=== PATIENT | female | born 1965 | race Caucasian/White ===

== ENCOUNTER 2020-02-25 12:38 | Outpatient (REF) | payer MEDICARE, MEDICAID, SELFPAY ==
--- NOTE | 2020-02-25 13:15 | XR_ITS ---
EXAMINATION: XR SHOULDER, RIGHT CLINICAL INFORMATION: Shoulder pain COMPARISON: None TECHNIQUE: 5 views of the right shoulder. FINDINGS: No fracture. Glenohumeral and acromioclavicular alignment is anatomic with normal joint space. No abnormal soft tissue calcifications. Visualized lungs are clear. XR/XR shoulder RT min 2V IMPRESSION: No evidence of significant osseous abnormality.
[2020-02-25 14:26] LABS: MANUAL DIFF FLAG NO
[2020-02-25 14:33] LABS: Basophils Absolute Auto 0.1 X10*3/uL (0.0-0.2); Eosinophils Absolute Auto 0.4 X10*3/uL (0.0-0.4); Eosinophils Percent Auto 5.1 % (0-4); Hemoglobin 13.1 g/dl (12.0-16.0); Imm Gran Abs Auto 0.02 X10*3/uL (0.00-0.03); Imm Gran Pct Auto 0.3 % (0.0-0.4); Lymphocytes Absolute Auto 1.4 X10*3/uL (1.2-4.9); Lymphocytes Percent Auto 19.4 % (20-40); Mean Corpuscular Hemoglobin 29.8 pg (27.0-33.0); Mean Corpuscular Volume 93.4 fL (80-98); Mean Platelet Volume 11.3 fL (9.4-12.3); Monocytes Absolute Auto 0.5 X10*3/uL (0.1-1.2); Monocytes Percent Auto 7.1 % (2-11); Neutrophils Absolute Auto 4.9 X10*3/uL (2.0-8.3); Neutrophils Percent Auto 67.1 % (45-73); Platelet Count 217 X10*3/uL (160-400); Red Blood Count 4.39 X10*6/uL (4.20-5.50); Red Cell Distribution Width 13.7 % (11.0-16.0); White Blood Count 7.3 X10*3/uL (4.8-10.8)
[2020-02-25 15:16] LABS: Alanine Aminotransferase 11 U/L (0-31); Albumin Level 4.1 g/dL (3.5-5.0); Alkaline Phosphatase 60 U/L (39-117); Anion Gap 16 (12-20); Aspartate Amino Transferase 15 U/L (5-31); Bilirubin Total 0.4 mg/dL (0.0-1.0); Blood Urea Nitrogen 14 mg/dL (9-16); Carbon Dioxide 24 mmol/L (22-29); Chloride 105 mmol/L (96-108); Cholesterol 206 mg/dL; Estimated Glomerular Filt Rate > 60; Glucose Random 88 mg/dL (60-115); Potassium 4.3 mmol/l (3.3-5.1); Sodium 141 mmol/L (135-145); Total Protein 6.3 g/dL (6.5-8.0)
[2020-02-25 15:37] LABS: Vitamin D 25-OH Total 37.4 ng/mL (>30)
== END 2020-02-25 12:39 | disposition home or self-care (01) ==
LOC: HO.LAB 12:38
PROVIDERS: PCP Internal Medicine; Visit Provider Internal Medicine
DX: E78.00 Pure hypercholesterolemia, unspecified (principal); K21.9 Gastro-esophageal reflux disease without esophagitis; E55.9 Vitamin D deficiency, unspecified; M25.511 Pain in right shoulder
CPT/HCPCS: 36415; 73030; 80053; 82306; 82465; 85025

== ENCOUNTER 2020-03-10 10:47 | Outpatient (REF) | payer MEDICARE, MEDICAID, SELFPAY ==
--- NOTE | 2020-03-10 10:52 | XR_ITS ---
EXAMINATION: XR SHOULDER, LEFT CLINICAL INFORMATION: Pain COMPARISON: Previous x-ray February 2017 TECHNIQUE: Three views of the left shoulder. FINDINGS: Bone alignment is normal. No fracture or dislocation is seen. The glenohumeral joint is normal. The acromioclavicular joint appears widened. This may be due to postsurgical changes, resection of the left distal clavicle. Soft tissues are normal. XR/XR shoulder LT min 2V IMPRESSION: Widened left acromioclavicular joint, question postsurgical. Otherwise unremarkable exam.
== END 2020-03-10 10:48 | disposition home or self-care (01) ==
LOC: HO.HOSX 10:47
PROVIDERS: Visit Provider Orthopaedic Surgery
DX: M75.41 Impingement syndrome of right shoulder (principal); M75.42 Impingement syndrome of left shoulder
CPT/HCPCS: 20610; 73030; 99202; J1040

== ENCOUNTER 2020-03-16 15:46 | Outpatient (REF) | payer MEDICARE, MEDICAID, SELFPAY | END 2020-03-16 15:47 | disposition home or self-care (01) | LOC: HO.LNP 15:46 | PROVIDERS: Visit Provider Internal Medicine | DX: Z20.828 Contact with and (suspected) exposure to other viral communicable diseases (principal) | CPT/HCPCS: U0003 ==

== ENCOUNTER 2020-04-15 14:15 | Outpatient (REF) | payer MEDICARE, MEDICAID, SELFPAY ==
[2020-04-15 15:24] LABS: Influenza A PCR NEGATIVE (Negative); Influenza B PCR NEGATIVE (Negative); Resp Syncy Virus RNA Qual PCR NEGATIVE (Negative); SARS COV2 PCR INHOUSE NEGATIVE (Negative)
== END 2020-04-15 14:16 | disposition home or self-care (01) ==
LOC: HO.LNP 14:15
PROVIDERS: Visit Provider Internal Medicine
DX: Z20.828 Contact with and (suspected) exposure to other viral communicable diseases (principal)
CPT/HCPCS: 0241U

== ENCOUNTER 2020-10-12 11:34 | Outpatient (REF) | payer MEDICARE, MEDICAID, SELFPAY ==
[2020-10-12 13:34] LABS: MANUAL DIFF FLAG NO
[2020-10-12 13:43] LABS: Basophils Absolute Auto 0.1 X10*3/uL (0.0-0.2); Eosinophils Absolute Auto 0.6 X10*3/uL (0.0-0.4); Eosinophils Percent Auto 8.1 % (0-4); Hematocrit 41.8 % (37-47); Hemoglobin 13.4 g/dl (12.0-16.0); Imm Gran Abs Auto 0.04 X10*3/uL (0.00-0.03); Imm Gran Pct Auto 0.6 % (0.0-0.4); Lymphocytes Absolute Auto 1.7 X10*3/uL (1.2-4.9); Lymphocytes Percent Auto 23.8 % (20-40); Mean Corpuscular HGB Conc 32.1 g/dl (31.0-35.0); Mean Corpuscular Hemoglobin 29.4 pg (27.0-33.0); Mean Corpuscular Volume 91.7 fL (80-98); Monocytes Absolute Auto 0.4 X10*3/uL (0.1-1.2); Monocytes Percent Auto 6.3 % (2-11); Neutrophils Absolute Auto 4.2 X10*3/uL (2.0-8.3); Neutrophils Percent Auto 60.2 % (45-73); Platelet Count 244 X10*3/uL (160-400); Red Blood Count 4.56 X10*6/uL (4.20-5.50); Red Cell Distribution Width 14.9 % (11.0-16.0); White Blood Count 6.9 X10*3/uL (4.8-10.8)
[2020-10-12 14:12] LABS: Alanine Aminotransferase 15 U/L (0-31); Albumin Level 4.1 g/dL (3.5-5.0); Alkaline Phosphatase 64 U/L (39-117); Anion Gap 11 (12-20); Aspartate Amino Transferase 14 U/L (5-31); Bilirubin Total 0.5 mg/dL (0.0-1.0); Blood Urea Nitrogen 13 mg/dL (9-16); Calcium 9.4 mg/dL (8.4-10.2); Carbon Dioxide 25 mmol/L (22-29); Chloride 108 mmol/L (96-108); Estimated Glomerular Filt Rate > 60; Glucose Random 114 mg/dL (60-115); Potassium 4.7 mmol/L (3.3-5.1); Sodium 139 mmol/L (135-145); Total Protein 6.1 g/dL (6.5-8.0)
== END 2020-10-12 11:35 | disposition home or self-care (01) ==
LOC: HO.10HDL 11:34
PROVIDERS: PCP Internal Medicine; Visit Provider Internal Medicine
DX: J44.9 Chronic obstructive pulmonary disease, unspecified (principal); K21.9 Gastro-esophageal reflux disease without esophagitis; E78.00 Pure hypercholesterolemia, unspecified; M19.019 Primary osteoarthritis, unspecified shoulder
CPT/HCPCS: 36415; 80053; 85025

== ENCOUNTER 2021-01-17 14:04 | Outpatient (REF) | payer MEDICARE, MEDICAID, SELFPAY ==
[2021-01-17 14:50] LABS: Influenza A PCR NEGATIVE (Negative); Influenza B PCR NEGATIVE (Negative); Resp Syncy Virus RNA Qual PCR NEGATIVE (Negative); SARS COV2 PCR INHOUSE POSITIVE (Negative)
== END 2021-01-17 14:05 | disposition home or self-care (01) ==
LOC: HO.LNP 14:04
PROVIDERS: Visit Provider Internal Medicine
DX: Z20.822 Contact with and (suspected) exposure to COVID-19 (principal); R05.9 Cough, unspecified; R51.9 Headache, unspecified; M79.10 Myalgia, unspecified site
CPT/HCPCS: 0241U

== ENCOUNTER 2021-03-04 12:26 | Outpatient (REF) | payer MEDICARE, MEDICAID, SELFPAY ==
[2021-03-04 13:30] LABS: MANUAL DIFF FLAG NO
[2021-03-04 13:32] LABS: Basophils Absolute Auto 0.1 X10*3/uL (0.0-0.2); Basophils Percent Auto 0.8 % (0-2); Eosinophils Absolute Auto 0.4 X10*3/uL (0.0-0.4); Eosinophils Percent Auto 4.9 % (0-4); Hemoglobin 13.3 g/dl (12.0-16.0); Imm Gran Abs Auto 0.03 X10*3/uL (0.00-0.03); Imm Gran Pct Auto 0.4 % (0.0-0.4); Lymphocytes Absolute Auto 1.7 X10*3/uL (1.2-4.9); Lymphocytes Percent Auto 24.3 % (20-40); Mean Corpuscular HGB Conc 32.4 g/dl (31.0-35.0); Mean Corpuscular Hemoglobin 29.4 pg (27.0-33.0); Mean Corpuscular Volume 90.5 fL (80.0-98.0); Mean Platelet Volume 10.6 fL (9.4-12.3); Monocytes Absolute Auto 0.4 X10*3/uL (0.1-1.2); Neutrophils Absolute Auto 4.5 x10*3/uL (2.0-8.3); Neutrophils Percent Auto 63.6 % (45-73); Platelet Count 229 X10*3/uL (160-400); Red Blood Count 4.53 X10*6/uL (4.20-5.50); Red Cell Distribution Width 14.6 % (11.0-16.0); White Blood Count 7.1 X10*3/uL (4.8-10.8)
[2021-03-04 14:02] LABS: Appearance Urine CLEAR; Color Urine YELLOW; Glucose Urine UA NEG (NEG); Leukocyte Esterase Urine NEG (NEG); Nitrite Urine NEG (NEG); Urine Blood NEG (NEG); Urine Ketones NEG (NEG); Urine Protein NEG (NEG-TRACE)
[2021-03-04 14:27] LABS: Alanine Aminotransferase 12 U/L (0-31); Albumin Level 4.3 g/dL (3.5-5.0); Alkaline Phosphatase 62 U/L (39-117); Anion Gap 11 (12-20); Aspartate Amino Transferase 14 U/L (5-31); Bilirubin Total 0.4 mg/dL (0.0-1.0); Blood Urea Nitrogen 17 mg/dL (9-16); C Reactive Protein 0.07 mg/dL (< or = 0.50); Calcium 9.6 mg/dL (8.4-10.2); Carbon Dioxide 25 mmol/L (22-29); Chloride 106 mmol/L (96-108); Cholesterol 229 mg/dL; Estimated Glomerular Filt Rate > 60; Glucose Fasting 124 mg/dL (60-99); HDL Cholesterol 66 mg/dL; LDL Cholesterol Calculated 144 mg/dl; Lipase 12 U/L (8-78); Potassium 4.2 mmol/L (3.3-5.1); Sodium 138 mmol/L (135-145); Total Protein 6.5 g/dL (6.5-8.0); Triglycerides 99 mg/dL
[2021-03-04 14:43] LABS: Vitamin D 25-OH Total 53.8 ng/mL (>30)
== END 2021-03-04 12:27 | disposition home or self-care (01) ==
LOC: HO.10HDL 12:26
PROVIDERS: Visit Provider Internal Medicine
DX: E78.00 Pure hypercholesterolemia, unspecified (principal); J44.9 Chronic obstructive pulmonary disease, unspecified; N18.9 Chronic kidney disease, unspecified; K21.9 Gastro-esophageal reflux disease without esophagitis; R25.1 Tremor, unspecified; R10.9 Unspecified abdominal pain; E55.9 Vitamin D deficiency, unspecified
CPT/HCPCS: 36415; 80053; 80061; 81003; 82306; 83690; 85025; 86140; 87086

== ENCOUNTER 2021-11-14 13:41 | Outpatient (REF) | payer MEDICARE, MEDICAID, SELFPAY ==
[2021-11-14 13:56] LABS: MANUAL DIFF FLAG NO
[2021-11-14 14:34] LABS: Basophils Absolute Auto 0.1 X10*3/uL (0.0-0.2); Basophils Percent Auto 0.5 % (0-2); Eosinophils Absolute Auto 0.3 X10*3/uL (0.0-0.4); Eosinophils Percent Auto 3.3 % (0-4); Hematocrit 39.2 % (37.0-47.0); Hemoglobin 12.7 g/dl (12.0-16.0); Imm Gran Abs Auto 0.04 X10*3/uL (0.00-0.03); Imm Gran Pct Auto 0.4 % (0.0-0.4); Lymphocytes Absolute Auto 1.9 X10*3/uL (1.2-4.9); Mean Corpuscular HGB Conc 32.4 g/dl (31.0-35.0); Mean Corpuscular Hemoglobin 29.3 pg (27.0-33.0); Mean Corpuscular Volume 90.3 fL (80.0-98.0); Monocytes Absolute Auto 0.7 X10*3/uL (0.1-1.2); Monocytes Percent Auto 7.2 % (2-11); Neutrophils Absolute Auto 6.2 x10*3/uL (2.0-8.3); Neutrophils Percent Auto 67.6 % (45-73); Platelet Count 237 X10*3/uL (160-400); Red Blood Count 4.34 X10*6/uL (4.20-5.50); Red Cell Distribution Width 14.5 % (11.0-16.0); White Blood Count 9.2 X10*3/uL (4.8-10.8)
[2021-11-14 15:13] LABS: Alanine Aminotransferase 12 U/L (0-31); Albumin Level 4.1 g/dL (3.5-5.0); Alkaline Phosphatase 82 U/L (39-117); Anion Gap 13 (12-20); Aspartate Amino Transferase 12 U/L (5-31); Bilirubin Total 0.3 mg/dL (0.0-1.0); Blood Urea Nitrogen 13 mg/dL (9-16); C Reactive Protein 0.76 mg/dL (< or = 0.50); Calcium 9.3 mg/dL (8.4-10.2); Carbon Dioxide 24 mmol/L (22-29); Chloride 108 mmol/L (96-108); Cholesterol 185 mg/dL; Estimated Glomerular Filt Rate > 60; Glucose Fasting 111 mg/dL (60-99); HDL Cholesterol 54 mg/dL; LDL Cholesterol Calculated 112 mg/dl; Potassium 4.5 mmol/L (3.3-5.1); Sodium 140 mmol/L (135-145); Total Protein 6.2 g/dL (6.5-8.0); Triglycerides 97 mg/dL
== END 2021-11-14 13:42 | disposition home or self-care (01) ==
LOC: HO.LAB 13:41
PROVIDERS: PCP Internal Medicine; Visit Provider Internal Medicine
DX: E78.00 Pure hypercholesterolemia, unspecified (principal); R51.9 Headache, unspecified; E55.9 Vitamin D deficiency, unspecified; K21.9 Gastro-esophageal reflux disease without esophagitis
CPT/HCPCS: 36415; 80053; 80061; 82306; 85025; 86140

== ENCOUNTER 2021-11-17 15:11 | Outpatient (REF) | payer MEDICARE, MEDICAID, SELFPAY | END 2021-11-17 15:12 | disposition home or self-care (01) | LOC: HO.LNP 15:11 | PROVIDERS: Visit Provider Internal Medicine | DX: L72.8 Other follicular cysts of the skin and subcutaneous tissue (principal) | CPT/HCPCS: 87071; 87077; 87186; 87205 ==

== ENCOUNTER 2022-02-21 12:19 | Outpatient (REF) | payer MEDICARE, MEDICAID, SELFPAY ==
[2022-02-21 13:51] LABS: MANUAL DIFF FLAG NO
[2022-02-21 14:02] LABS: Basophils Absolute Auto 0.1 X10*3/uL (0.0-0.2); Basophils Percent Auto 1.2 % (0-2); Eosinophils Absolute Auto 0.3 X10*3/uL (0.0-0.4); Eosinophils Percent Auto 4.3 % (0-4); Hematocrit 39.1 % (37.0-47.0); Hemoglobin 12.7 g/dl (12.0-16.0); Imm Gran Abs Auto 0.03 X10*3/uL (0.00-0.03); Imm Gran Pct Auto 0.5 % (0.0-0.4); Lymphocytes Absolute Auto 1.9 X10*3/uL (1.2-4.9); Lymphocytes Percent Auto 29.3 % (20-40); Mean Corpuscular HGB Conc 32.5 g/dl (31.0-35.0); Mean Corpuscular Hemoglobin 29.5 pg (27.0-33.0); Mean Corpuscular Volume 90.7 fL (80.0-98.0); Mean Platelet Volume 10.6 fL (9.4-12.3); Monocytes Absolute Auto 0.4 X10*3/uL (0.1-1.2); Monocytes Percent Auto 6.8 % (2-11); Neutrophils Absolute Auto 3.7 x10*3/uL (2.0-8.3); Neutrophils Percent Auto 57.9 % (45-73); Platelet Count 238 X10*3/uL (160-400); Red Blood Count 4.31 X10*6/uL (4.20-5.50); Red Cell Distribution Width 14.1 % (11.0-16.0); White Blood Count 6.4 X10*3/uL (4.8-10.8)
[2022-02-21 14:27] LABS: D Dimer High Sensitivity < 150 NG/ML
[2022-02-21 14:40] LABS: Alanine Aminotransferase 11 U/L (0-31); Albumin Level 4.1 g/dL (3.5-5.0); Alkaline Phosphatase 65 U/L (39-117); Anion Gap 12 (12-20); Aspartate Amino Transferase 14 U/L (5-31); Bilirubin Total 0.3 mg/dL (0.0-1.0); Blood Urea Nitrogen 21 mg/dL (9-16); Calcium 9.7 mg/dL (8.4-10.2); Carbon Dioxide 25 mmol/L (22-29); Chloride 107 mmol/L (96-108); Estimated Glomerular Filt Rate > 60; Free T4 (Free Thyroxine) 0.85 ng/dL (0.71-1.85); Glucose Random 108 mg/dL (60-115); Potassium 4.5 mmol/L (3.3-5.1); Sodium 139 mmol/L (135-145); Thyroid Stimulating Hormone 3.23 uIU/mL (0.32-4.0); Total Protein 6.1 g/dL (6.5-8.0)
[2022-02-21 15:39] LABS: B Type Natriuretic Peptide 71 pg/mL (<100)
== END 2022-02-21 12:20 | disposition home or self-care (01) ==
LOC: HO.10HDL 12:19
PROVIDERS: Visit Provider Internal Medicine
DX: J44.9 Chronic obstructive pulmonary disease, unspecified (principal); R53.83 Other fatigue; K21.9 Gastro-esophageal reflux disease without esophagitis; R51.9 Headache, unspecified
CPT/HCPCS: 36415; 80053; 83880; 84439; 84443; 85025; 85379

== ENCOUNTER 2022-07-03 12:34 | Outpatient (REF) | payer MEDICARE, MEDICAID, SELFPAY ==
[2022-07-03 14:01] LABS: Anion Gap 13 (12-20); Blood Urea Nitrogen 13 mg/dL (9-16); Calcium 9.2 mg/dL (8.4-10.2); Carbon Dioxide 26 mmol/L (22-29); Chloride 110 mmol/L (96-108); Estimated Glomerular Filt Rate > 60; Glucose Random 70 mg/dL (60-115); Potassium 4.7 mmol/L (3.3-5.1); Sodium 144 mmol/L (135-145)
[2022-07-03 14:14] LABS: T4 Thyroxine 7.2 ug/dL (4.5-12.0); Thyroid Stimulating Hormone 2.24 uIU/mL (0.32-4.0)
[2022-07-03 14:35] LABS: Erythrocyte Sedimentation Rate 2 MM/HR (0-20)
[2022-07-08 14:04] LABS: Aldolase 4.6 U/L (<=8.1)
== END 2022-07-03 12:35 | disposition home or self-care (01) ==
LOC: HO.10HDL 12:34
PROVIDERS: Visit Provider Psychiatry & Neurology Neurology
DX: G11.9 Hereditary ataxia, unspecified (principal); M31.6 Other giant cell arteritis; E03.9 Hypothyroidism, unspecified
CPT/HCPCS: 36415; 80048; 82085; 82550; 84436; 84443; 85652

== ENCOUNTER 2022-07-05 11:20 | Outpatient (REF) | payer MEDICARE, MEDICAID, SELFPAY ==
--- NOTE | ~2022-07-05 | MR_ITS ---
EXAMINATION: MR BRAIN WITHOUT CONTRAST CLINICAL INFORMATION: Cerebellar ataxia, rule out cerebellar lesion COMPARISON: None TECHNIQUE: Multiplanar multisequence MR imaging of the brain was obtained without intravenous contrast. FINDINGS: There is no acute infarct on diffusion-weighted imaging. There is no intracranial hemorrhage on iron-sensitive imaging. No extra-axial collection or mass effect/herniation. There are several scattered foci of nonspecific supratentorial white matter T2/FLAIR signal abnormality including several clustered in the left frontal white matter. No hydrocephalus. The ventricles are normal in morphology and size. The major flow voids at the skull base are preserved. The midline structures are normal. The cerebellar tonsils are normally positioned. The craniocervical junction is normal. Marrow signal is within normal limits. The visualized soft tissues are without significant abnormality. No signal abnormality within the paranasal sinuses or within the mastoid air cells. MR/MR head/brain wo con IMPRESSION: 1. No acute intracranial abnormality. 2. No cerebellar lesion as clinically queried 3. Several scattered foci of supratentorial white matter T2/FLAIR signal abnormality are nonspecific but can be seen in the setting of chronic microvascular ischemia or migraine headache.
== END 2022-07-05 11:21 | disposition home or self-care (01) ==
LOC: HO.MRI 11:20
PROVIDERS: Visit Provider Psychiatry & Neurology Neurology
DX: G11.9 Hereditary ataxia, unspecified (principal)
CPT/HCPCS: 70551

== ENCOUNTER 2024-06-05 17:29 | Emergency (ER) | payer MEDICARE, MEDICAID, SELFPAY ==
--- NOTE | ~2024-06-05 | XR_ITS ---
CLINICAL HISTORY: cough x 3 weeks 2 view chest x-ray Comparison: CR - CHEST 1 VIEW [id number] - 02/09/14 13:26 EDT CR - CHEST 2 VIEWS [id number] - 07/25/13 11:54 EDT Findings: No consolidation or effusion. Heart size is normal. No acute fracture. IMPRESSION: 1. No acute findings. This document has been electronically signed by: Angelica De León MD on 06/05/2024 18:37:58
[2024-06-05 18:04] VITALS: BP 120/52; PULSE 90; RESP 16; TEMP 36.8; O2SAT 96; BMI 23.1
--- NOTE | 2024-06-05 18:05 | ED.GENADULT ---
HPI - General Adult General Chief complaint: Upper Respiratory Symptoms Stated complaint: cough x3 wks,migraine Time Seen by Provider: 06/06/24 00:52 Source: patient, RN notes reviewed and old records reviewed Mode of arrival: ambulatory Limitations: no limitations History of Present Illness ED Provider: Rene HPI narrative: 58 old female presents for evaluation of shortness of breath and cough. The patient does have a history of COPD, she is not O2 dependent. She still smokes, 1-3 cigarettes per day She reports some chest tightness, cough that is dry, no sputum production. Denies any leg swelling, recent travel pain Denies any fevers or chills but endorses weakness Denies any sick contacts Related Data Home Medications ?Medication ?Instructions ?Recorded ?Confirmed albuterol sulfate 90 mcg/actuation 1 inh inhalation QID 03/09/20 aerosol inhaler (Ventolin HFA) bupropion HCl 150 mg 24 hr tablet, 150 mg PO QAM 03/09/20 extended release clonazepam 1 mg tablet 1 mg PO BEDTIME 03/09/20 cyclobenzaprine 5 mg tablet 5 mg PO BEDTIME 03/09/20 hydroxyzine pamoate 25 mg capsule 25 mg PO TID 03/09/20 omeprazole 20 mg capsule,delayed 20 mg PO DAILY 03/09/20 release topiramate 200 mg capsule 200 mg PO DAILY 03/09/20 sprinkle,extended release 24 hr lifitegrast 5 % eye drops in a 1 drp ophthalmic (eye) BID 03/10/20 dropperette (Xiidra) potassium chloride PO 03/10/20 rivaroxaban 15 mg tablet (Xarelto) 15 mg PO DAILY 03/10/20 simvastatin 40 mg tablet 40 mg PO DAILY 03/10/20 Previous Rx's ?Medication ?Instructions ?Recorded azithromycin 250 mg tablet 250 mg PO DAILY 4 days #4 tabs 06/06/24 cephalexin 500 mg tablet 500 mg PO QID #27 tabs 06/06/24 prednisone 20 mg tablet 40 mg (2 x 20 mg) PO DAILY #8 tabs 06/06/24 Allergies Allergy/AdvReac Type Severity Reaction Status Date / Time aspirin [ASPIRIN] AdvReac Intermediate STOMACH Verified 06/05/24 18:08 ISSUES oxycodone [Percocet] AdvReac Unknown Dizziness Verified 06/05/24 18:08 Review of Systems Constitutional: Constitutional: Denies body ache(s), Denies chills, Denies fever(s), Reports lethargy, Reports malaise and Reports weakness ENT: Reports sore throat Cardiovascular: Cardiovascular: Denies chest pain and Reports dyspnea Respiratory: Respiratory: Reports cough, Reports dyspnea and Reports wheezing Gastrointestinal: Gastrointestinal: Denies abdominal pain, Denies nausea and Denies vomiting Musculoskeletal: Musculoskeletal: Denies back pain Integumentary/Breasts: Skin/Breast: Denies rash Neurologic: Reports weakness Allergic/Immunologic: Allergic/Immunologic: Reports wheezing PMFSH Past Medical History Medical History (Updated 06/06/24 @ 01:09 by Jamey López) Migraine headache Hyperlipidemia Anxiety Adhesive capsulitis of left shoulder Rotator cuff impingement syndrome of left shoulder Surgical History (Updated 03/09/20 @ 16:09 by Lucy Hoyos CMA) History of arthroscopy of left shoulder H/O section Social History Social History (Updated 03/10/20 @ 11:17 by Lucy Hoyos CMA) Smoked in Last 30 Days: Yes Use of substances other than those prescribed or required for medical reasons: No Advance Directives: No Advance Directives Information Provided: No Do you have a plan to hurt others: No Plan Current occupational status: unemployed Current occupation: Right Handed Physical Exam ED Vital Signs: Vital Signs - 24 hr 06/05/24 18:04 06/05/24 23:26 06/05/24 23:29 Temperature 98.2 F 97.8 F Pulse Rate 90 77 Respiratory Rate 16 20 Blood Pressure 120/52 L 179/80 H Pulse Oximetry 96 96 97 Oxygen Delivery Method Room Air Room Air Room Air Oxygen Flow Rate 97 06/06/24 01:26 Temperature 98 F Pulse Rate 88 Respiratory Rate 16 Blood Pressure 170/60 H Pulse Oximetry 98 Oxygen Delivery Method Room Air Oxygen Flow Rate BMI result Body Mass Index 23.1 Const General: healthy appearing, comfortable, no acute distress, alert and awake Nutritional Appearance: well nourished Orientation/consciousness: patient oriented x3 HENMT Head: Yes normocephalic and Yes atraumatic Eyes Pupils: Equal, round and reactive pupils present Neck Neck: Yes full ROM Resp Other: Faint expiratory wheeze Effort & Inspection: normal respiratory effort, able to speak in complete sentences and not labored Cardio Other: No lower extremity edema GI Inspection: No distended Palpation (GI): Soft to palpation, not firm, nontender, no guarding and not rigid Skin General skin exam: elasticity normal Neuro General: patient oriented x3 Cranial nerves: Yes Equal, round and reactive pupils present and Yes Bilaterally intact EOM present Cognition (Neuro): normal cognition Extrem Other: Moving all extremities well without any obvious deformities Course Course Course Narrative: This is a rapid medical exam performed by Ana Leung NP: Additional HPI, ROS, PE not included below will be deferred to primary provider. Patient is a 58-year-old female with pmhx migraines, HLD, anxiety presenting to the ED with complaint of cough for three weeks as well as migraine. Denies any known sick contacts. Some diarrhea. Intermittent abdominal pain. Chest pain from coughing. Plan: viral serology, labs, CXR, EKG Medications Administered Discontinued Medications Generic Name Dose Route Start Last Admin Trade Name Freq PRN Reason Stop Dose Admin Azithromycin 500 mg 06/06/24 01:10 06/06/24 01:20 Azithromycin 500 Mg Tablet PO 06/06/24 01:11 500 mg ONCE ONE Administration Cephalexin HCl 500 mg 06/06/24 01:10 06/06/24 01:20 Cephalexin 500 Mg Capsule PO 06/06/24 01:11 500 mg ONCE ONE Administration Prednisone 40 mg 06/06/24 01:10 06/06/24 01:20 Prednisone 20 Mg Tablet PO 06/06/24 01:11 40 mg ONCE ONE Administration Medical Decision Making Medical Decision Making MDM Narrative: 58 old female with history COPD presents for evaluation of cough, shortness of breath. She was have faint wheezing on exam. She has rescue albuterol inhaler at home and reports that she does not need a refill. Your workup in the ER was reassuring, chest x-ray was clear, no infiltrates or effusions. She has no leukocytosis or significant left shift. Chemistries without any concerning abnormalities. Normal renal function. EKG is normal sinus rhythm with a rate of [address] segment elevation PR. symptoms have been present for over 2 weeks, we will treat with azithromycin and prednisone. The patient last minute wants me to evaluate her umbilicus as she reports pain over the areas since 2 days ago. She has mild erythema around the area, no evidence of drainage. We will treat with cephalexin for a mild cellulitis in addition to the treatment for bronchitis Differential Diagnosis Differential Diagnoses: The differential diagnosis associated with the presentation includes You bronchitis Upper respiratory infection Asthma COPD Pneumonia Admission/Observation Consideration of admission/observation: Escalation of care including admission/observation considered Lab Data MDM Lab Attestation statement: I reviewed the patient's lab results. As above 06/05/24 18:27 06/05/24 18:27 Labs: Lab Results 06/05/24 Range/Units 18:27 WBC 7.4 (4.8-10.8) X10*3/uL RBC 4.34 (4.20-5.50) X10*6/uL Hgb 12.2 (12.0-16.0) g/dl Hct 37.5 (37.0-47.0) % MCV 86.4 (80.0-98.0) fL MCH 28.1 (27.0-33.0) pg MCHC 32.5 (31.0-35.0) g/dl RDW 16.0 (11.0-16.0) % Plt Count 312 D (160-400) X10*3/uL MPV 10.4 (9.4-12.3) fL Immature Gran % (Auto) 2.6 H (0.0-0.4) % Neut % (Auto) 60.3 (45-73) % Lymph % (Auto) 23.1 (20-40) % Rowan % (Auto) 9.3 (2-11) % Eos % (Auto) 3.9 (0-4) % Baso % (Auto) 0.8 (0-2) % Lymph # (Auto) 1.7 (1.2-4.9) X10*3/uL Rowan # (Auto) 0.7 (0.1-1.2) X10*3/uL Eos # (Auto) 0.3 (0.0-0.4) X10*3/uL Baso # (Auto) 0.1 (0.0-0.2) X10*3/uL Abs Immat Gran (auto) 0.19 H (0.00-0.03) X10*3/uL Absolute Neuts (auto) 4.5 (2.0-8.3) x10*3/uL Absolute Nucleated RBC 0.000 (0.0-0.012) X10*3/uL Nucleated RBC % (auto) 0.0 (0.0-0.2) /100WBC Sodium 144 (135-145) mmol/L Potassium 4.7 (3.3-5.1) mmol/L Chloride 113 H (96-108) mmol/L Carbon Dioxide 24 (22-29) mmol/L Anion Gap 12 (12-20) BUN 13 (9-16) mg/dL Creatinine 0.82 (0.5-1.4) mg/dL Estim Creat Clear Calc 57.6 Estimated GFR > 60 Random Glucose 124 H (60-115) mg/dL Calcium 9.4 (8.4-10.2) mg/dL Total Bilirubin 0.2 (0.0-1.0) mg/dL AST 19 (5-31) U/L ALT 14 (0-31) U/L Alkaline Phosphatase 81 (39-117) U/L Troponin I High Sens 3.7 (<3.5-17.0) ng/L Total Protein 6.6 (6.5-8.0) g/dL Albumin 3.9 (3.5-5.0) g/dL Influenza Type A (PCR) NEGATIVE (Negative) Influenza Type B (PCR) NEGATIVE (Negative) RSV RNA Qual (PCR) NEGATIVE (Negative) SARS-CoV-2 RNA (RT-PCR) NEGATIVE (Negative) Independent Interpretation I performed an independent interpretation of an: EKG and Plain X-Ray (No focal infiltrates) Interpretation: Normal sinus rhythm with a rate of 92 beats minute. Radiology Impression Discussion of test interpretation with radiology: I have reviewed the radiologist's reading. Radiologist Impression: Findings: No consolidation or effusion. Heart size is normal. No acute fracture. IMPRESSION: 1. No acute findings. This document has been electronically signed by: Angelica De León MD on 06/05/2024 18:37:58 Discharge Plan Discharge Clinical Impression: Bronchitis, Cellulitis of periumbilical region Patient Disposition: Home, Self-Care Instructions: Cellulitis (ED), Acute Bronchitis (ED) Additional Instructions: Your workup in the ER today was reassuring. This includes your chest x-ray, labs and viral swabs. Take the azithromycin and prednisone for bronchitis and the cephalexin for a skin infection around your umbilicus Follow-up with your primary doctor, return for new or worsening symptoms Prescriptions: New azithromycin 250 mg tablet 250 mg PO DAILY 4 Days Qty: 4 0RF Rx Instructions: start on day 2 of therapy prednisone 20 mg tablet 40 mg PO DAILY Qty: 8 0RF cephalexin 500 mg tablet 500 mg PO QID Qty: 27 0RF Interventions: ED Discharge Assessment Last Done: 06/06/24 01:26 Discharge Date/Time: 06/06/24 01:29 Print Language: Nicaraguan
--- NOTE | 2024-06-05 18:08 | ECG_ITS ---
Test Reason : CHEST PAIN Blood Pressure : */* mmHG Vent. Rate : 92 BPM Atrial Rate : 92 BPM P-R Int : 130 ms QRS Dur : 76 ms QT Int : 362 ms P-R-T Axes : 77 59 64 degrees QTcB Int : 447 ms Normal sinus rhythm Normal EKG When compared with ECG of 09-Feb-2014 12:21, No significant change was found Referred By: Zunilda Leung Electronically Signed By: USHA ARAIZA
[2024-06-05 18:31] LABS: MANUAL DIFF FLAG NO
[2024-06-05 18:33] LABS: Basophils Absolute Auto 0.1 X10*3/uL (0.0-0.2); Basophils Percent Auto 0.8 % (0-2); Eosinophils Absolute Auto 0.3 X10*3/uL (0.0-0.4); Eosinophils Percent Auto 3.9 % (0-4); Hematocrit 37.5 % (37.0-47.0); Hemoglobin 12.2 g/dl (12.0-16.0); Imm Gran Abs Auto 0.19 X10*3/uL (0.00-0.03); Imm Gran Pct Auto 2.6 % (0.0-0.4); Lymphocytes Absolute Auto 1.7 X10*3/uL (1.2-4.9); Lymphocytes Percent Auto 23.1 % (20-40); Mean Corpuscular HGB Conc 32.5 g/dl (31.0-35.0); Mean Corpuscular Hemoglobin 28.1 pg (27.0-33.0); Mean Corpuscular Volume 86.4 fL (80.0-98.0); Mean Platelet Volume 10.4 fL (9.4-12.3); Monocytes Absolute Auto 0.7 X10*3/uL (0.1-1.2); Monocytes Percent Auto 9.3 % (2-11); Neutrophils Absolute Auto 4.5 x10*3/uL (2.0-8.3); Neutrophils Percent Auto 60.3 % (45-73); Platelet Count 312 X10*3/uL (160-400); Red Blood Count 4.34 X10*6/uL (4.20-5.50); White Blood Count 7.4 X10*3/uL (4.8-10.8)
--- OUTSIDE RECORDS SUMMARY | 2024-06-05 18:34 | XMS_ITS | Encounter Summary ---
Author Organization [employer] Address [address] [place] [address] Care Team Providers Care Bindery Cutter Operator Name Role Phone Unavailable Primary Care Provider Unavailabl e Encounter Details Date Type Department Care Team (Latest Contact Info) Description 05/28/2018 Abstract [facility] CONVERSIONS Dental, Provider, DDS Social History Tobacco Use Types Packs/Day Years Used Date Smoking Tobacco: Never Assessed Comments Unknown Sex and Gender Information Value Date Recorded Sex Assigned at Female 02/13/2022 10:27 AM EDT Legal Sex Female 10:27 AM EDT Gender Identity Female 02/13/2022 10:27 AM EDT Sexual Orientation Straight 02/13/2022 10 :27 AM EDT documented as of this encounter Plan of Treatment Not on file documented as of this encounter Visit Diagnoses Not on filedocumented in this encounter
--- OUTSIDE RECORDS SUMMARY | 2024-06-05 18:34 | XMS_ITS | Clinical Summary ---
Author Organization [employer] Address [address] [place] [address] Care Team Providers Care Carpenter And Joiner Name Role Phone Unavailable Primary Care Provider Unavailabl e Allergies Active Allergy Reactions Criticality Noted Date Comments Aspirin 10/04/2018 Oxycodone-Acetaminophen 11/24/2022 nausea Medications albuterol (ProAir HFA) 108 (90 Base) MCG/ACT inhaler 2 puffs as needed Active atorvastatin (Lipitor) 40 MG tablet 11/21/2022 Active buPROPion (Wellbutrin) 100 MG tablet 3 times a day. Active clonazePAM (KlonoPIN) 0.5 MG tablet Take 0.5 mg by mouth if needed each day. 11/12/2022 Active cyclobenzaprine (Flexeril) 5 MG tablet 3 times a day. Active hydrOXYzine HCl (Atarax) 50 MG tablet Take 50 mg by mouth 3 times daily. 10/26/2022 Active omeprazole (PriLOSEC) [address] capsule daily. Active potassium chloride CR (Klor-Con) 10 MEQ ER tablet 4 times a day. Active topiramate (Topamax) 200 MG tablet daily. Active Xarelto 15 MG tablet Take 15 mg by mouth in the morning. 10/19/2022 Active warfarin (Coumadin) 5 MG tablet 1 tablet Active traZODone (Desyrel) 300 MG tablet 3 times a day. Active propranolol (Inderal) 60 MG tablet 2 times daily. Active Active Problems No known active problems Social History Tobacco Use Types Packs/Day Years Used Date Smoking Tobacco: Every Day Cigarettes Passive Smoke Exposure: Never Smokeless Tobacco: Never Tobacco Cessation:Ready to Q uit: Not Asked; Counseling Given: Not Answered Comments Unknown Sex and Gender Information Value Date Recorded Sex Assigned at Female 02/13/2022 10:27 AM EDT Legal Sex Female 10:27 AM EDT Gender Identity Female 02/13/2022 10:27 AM EDT Sexual Orientation Straight 02/13/2022 10 :27 AM EDT Last Filed Vital Signs Vital Sign Reading Time Taken Comments Blood Pressure 138/68 12/13/2023 11:00 AM EDT Pulse 65 12/13/2023 11:00 AM EDT Temperature - - Respiratory Rate - - Oxygen Saturation - - Inhaled Oxygen Concentration - - Weight - - Height - - Body Mass Index - - Plan of Treatment Health Maintenance Due Date Last Done Comments CT Colonography 1963 Colonoscopy 1963 Colorectal Cancer Screening 1963 Depression Screening 1963 FIT DNA/Cologuard 1963 FIT 1963 FOBT 1963 HIV Screening 1963 Lipid Panel 1963 SDOH Screening 1963 Sigmoidoscopy 1963 Alcohol/Substance Use Screening 1975 Hepatitis C Screening 11/14/1981 DTaP/Tdap/Td Vaccines (1 - Tdap) 11/14/1982 Pneumococcal Vaccine: 50+ Years (1 of 2 - PCV) 11/14/1982 Pap Smear 11/14/1984 Cervical Cancer Screening 11/14/1993 HPV/Cotest 11/14/1993 Mammogram 2003 Zoster Vaccines (1 of 2) 11/14/2013 RSV Patients and Patients Aged 60 years or older (1 - Risk 60-74 years 1-dose series) 2023 COVID-19 Vaccine ( season) 2023 04/12/2021, 09/01/2020, 08/10/2020 Influenza Vaccine (#1) 2023 Dental Oral Exam 06/14/2024 12/13/2023, 03/2019, 05/22/2016, Additional history exists Dental Prophylaxis 06/14/2024 12/13/2023, 0 11/24/2022, 06/18/2019, Additional history exists Tobacco Screening 12/12/2024 12/13/2023 Dental X-Ray: Bitewings 12/13/2024 12/13/19 24, 04/10/2023, 11/24/2022, Additional history exists Dental X-Ray: Full Mouth 12/13/2026 024, 05/28/2018, 11/26/2014 HIB Vaccines Aged Out No longer eligi ble based on patient's age to complete this topic HPV Vaccines Aged Out No longer eligi ble based on patient's age to complete this topic Hepatitis A Vaccines Aged Out No long er eligible based on patient's age to complete this topic Hepatitis B Vaccines Aged Out No long er eligible based on patient's age to complete this topic IPV Vaccines Aged Out No longer eligi ble based on patient's age to complete this topic Meningococcal Vaccine Aged Out No prashant félix eligible based on patient's age to complete this topic RSV under 20 months Aged Out No longe r eligible based on patient's age to complete this topic Rotavirus Vaccines Aged Out No longer eligible based on patient's age to complete this topic Procedures Procedure Name Priority Date/Time Associated Diagnosis Comments PROPHYLAXIS - ADULT Routine 12/13/2023 1 1:00 AM EDT Dental calculus Dental caries INTRAORAL - COMPLETE SERIES OF RADIOGRAPHIC IMAGES Routine 12/13/2023 11:00 AM EDT Dental calculus Dental caries PERIODIC ORAL EVALUATION - ESTABLISHED PATIENT Routine 12/13/2023 11:00 AM EDT Dental calculus Dental caries from Last 3 Months or Most Recently Relevant to Health Maintenance Insurance [facility] MEDICAID STAND ADULT
[2024-06-05 18:47] LABS: Alanine Aminotransferase 14 U/L (0-31); Albumin Level 3.9 g/dL (3.5-5.0); Alkaline Phosphatase 81 U/L (39-117); Anion Gap 12 (12-20); Aspartate Amino Transferase 19 U/L (5-31); Bilirubin Total 0.2 mg/dL (0.0-1.0); Blood Urea Nitrogen 13 mg/dL (9-16); Calcium 9.4 mg/dL (8.4-10.2); Carbon Dioxide 24 mmol/L (22-29); Chloride 113 mmol/L (96-108); Creatinine Clr Calc Pharmacy 57.6; Estimated Glomerular Filt Rate > 60; Glucose Random 124 mg/dL (60-115); Potassium 4.7 mmol/L (3.3-5.1); Sodium 144 mmol/L (135-145); Total Protein 6.6 g/dL (6.5-8.0)
[2024-06-05 18:54] LABS: Troponin-I High Sensitivity 3.7 ng/L (<3.5-17.0)
[2024-06-05 19:10] LABS: Influenza A PCR NEGATIVE (Negative); Influenza B PCR NEGATIVE (Negative); Resp Syncy Virus RNA Qual PCR NEGATIVE (Negative); SARS COV2 PCR INHOUSE NEGATIVE (Negative)
[2024-06-05 23:26] VITALS: BP 179/80; PULSE 77; RESP 20; TEMP 36.6; O2SAT 96
[2024-06-05 23:29] VITALS: O2SAT 97
[2024-06-06] MEDS: predniSONE 20 MG TABLET 40 MG PO (01:20)
[2024-06-06] MEDS: Azithromycin 500 MG TABLET PO (01:20)
[2024-06-06] MEDS: cephALEXin 500 MG CAPSULE PO (01:20)
--- NOTE | 2024-06-06 01:22 | PC.NURSE ---
medicated per mar.
[2024-06-06 01:26] VITALS: BP 170/60; PULSE 88; RESP 16; TEMP 36.6; O2SAT 98
== END 2024-06-06 01:29 | disposition home or self-care (01) ==
PROVIDERS: Registered Nurse Emergency; Emergency Provider Internal Medicine; PCP Internal Medicine
DX: J40 Bronchitis, not specified as acute or chronic (principal); R05.9 Cough, unspecified; R07.89 Other chest pain; R10.33 Periumbilical pain; Z79.899 Other long term (current) drug therapy; Z03.818 Encounter for observation for suspected exposure to other biological agents ruled out
CPT/HCPCS: 0241U; 36415; 71046; 80053; 84484; 85025; 93005; 99283; 99285

== ENCOUNTER → 2024-06-05 18:07 | Outpatient (BNV) | payer MEDICARE, MEDICAID, SELFPAY | PROVIDERS: PCP Internal Medicine; Visit Provider Radiology Diagnostic Radiology | DX: R05.9 Cough, unspecified (principal) | CPT/HCPCS: 71046 ==

== ENCOUNTER → 2024-06-05 18:08 | Outpatient (BNV) | payer MEDICARE, MEDICAID, SELFPAY | PROVIDERS: Emergency Provider Internal Medicine; PCP Internal Medicine; Visit Provider Internal Medicine | DX: R07.9 Chest pain, unspecified (principal) | CPT/HCPCS: 93010 ==

== ENCOUNTER 2024-08-20 11:04 | Outpatient (AMB) | payer MEDICARE, MEDICAID, SELFPAY ==
[2024-08-20 10:48] VITALS: BP 120/74; PULSE 82; TEMP 36.4; O2SAT 98; BMI 23.6
--- NOTE | 2024-08-20 10:48 | A.OFFPC_ITS ---
Vital Signs 08/20/24 10:48 Height 5 ft 2 in Weight 129 lb BMI 23.6 BP 120/74 Blood Pressure Location Rt brachial Position Sitting Pulse 82 Pulse Source Pulse Oximeter Temp 97.5 F Temp Source Axillary Pulse Oximetry (%) 98 Oxygen Delivery Method Room Air Intake Visit Reasons: Routine - see comments Molding Cutter Required: No Accompanied by: Daughter Allergies aspirin [ASPIRIN] Adverse Reaction (Intermediate, Verified 08/20/24 11:19) STOMACH ISSUES oxycodone [Percocet] Adverse Reaction (Unknown, Verified 08/20/24 11:19) Dizziness Tobacco use date assessed: 08/20/24 Dental Screening Dental Screen Date: 08/20/24 Did you have a dental visit in the last 12 months?: Yes Did you have a dental problem in the last 6 months where you did not have access to dental care?: No [facility] Medical History (Updated 08/29/24 @ 13:32 by Bill Blue MD) Migraine headache Hyperlipidemia Anxiety Adhesive capsulitis of left shoulder Rotator cuff impingement syndrome of left shoulder Surgical History History of arthroscopy of left shoulder H/O section Family History (Updated 08/20/24 @ 11:26 by Tanya Etienne MA) Mother No problems noted. Father No problems noted. Social History Housing: Apartment Patient Tobacco Use Status: Former Tobacco user e-Cigarette/Vaping Use: Former Use service: No Current occupational status: unemployed Current occupation: Right Handed Cognitive needs: No Hearing needs: No Vision needs: Yes (rx glasses) Questionnaire PHQ-9 Over the last 2 weeks, how often have you been bothered by any of the following problems? 1. Little interest or pleasure in doing things: not at all 2. Feeling down, depressed, or hopeless: not at all 3. Trouble falling or staying asleep, or sleeping too much: not at all 4. Feeling tired or having little energy: not at all 5. Poor appetite or overeating: not at all 6. Feeling bad about yourself - or that you are a failure or have let yourself or your family down: not at all 7. Trouble concentrating on things, such as reading the newspaper or watching television: not at all 8. Moving or speaking so slowly that other people could have noticed. Or the opposite - being so fidgety or restless that you have been moving around a lot more than usual: not at all 9. Thoughts that you would be better off or of hurting yourself in some way: not at all Total score: 0 Source: Developed by Drs. Isaiah Hernandez, Jana More, Hernandez William and colleagues, with an educational alejandro from [employer]. Thrive Questionnaire Date Thrive assessed: 08/20/24 I am a: Patient Within the past 12 months, did the food you bought not last and you didn't have the money to get more?: Never true Within the past 12 months, did you worry whether your food would run out before you got money to buy more?: Never true Do you have trouble paying for medicines?: No Do you have trouble getting transportation to medical appointments?: No Do you have trouble paying your heating and electricity bill?: No Do you have trouble taking care of your child, family member or friend?: No Do you have trouble with day-to-day activities such as bathing, preparing meals, shopping, managing finances, etc.?: No Are you currently unemployed and looking for a job?: No Are you interested in more education?: No THRIVE Score: 0 AUDIT C Alcohol Use Questionnaire (AUDIT-C) 1. How often do you have a drink containing alcohol?: Never 3. How often do you have six or more drinks on one occasion?: Never Total Score: 0 JAVIER-7 AMB Questionnaire JAVIER-7 Date JAVIER - 7 assessed: 08/20/24 Feeling nervous, anxious, or on edge: 0 = Not at all Not being able to stop or control worryin = Not at all Worrying too much about different things: 0 = Not at all Trouble relaxin = Not at all Being so restless that it is hard to sit still: 0 = Not at all Becoming easily annoyed or irritable: 0 = Not at all Feeling afraid as if something awful might happen: 0 = Not at all Total JAVIER-7 score (0-4 normal; 5-9 mild; 10-14 moderate; 15-21 severe): 0 Source: Developed by Drs. Isaiah Hernandez, Jana More, Hernandez William and colleagues, with an educational alejandro from [employer]. Physical exam (Primary Care) Vital Signs: Last Vital Signs Temp 97.5 F 08/20/24 10:48 Pulse 82 08/20/24 10:48 BP 120/74 08/20/24 10:48 Pulse Ox 98 08/20/24 10:48 Oxygen Delivery Method Room Air 08/20/24 10:48 BMI result Body Mass Index 23.6 Tobacco/Smoking Status: Tobacco use Status Tobacco use date assessed 08/20/24 08/20/24 11:27 Patient Tobacco Use Status Former Tobacco user 08/20/24 11:27 e-Cigarette/Vaping Use Former Use 08/20/24 11:27 PHQ-9: PHQ-9 Score PHQ-9: Total score 0 08/20/24 11:27 Thrive Assessment: Date of Thrive Assessment Date Thrive assessed 08/20/24 08/20/24 11:27 Coding Level of Care Code New Pt Level 4 (95409) Complex EM visit Add On G2211 Diagnoses Anxiety F41.9 Assessment & Plan Assessment & Plan (1) Anxiety: Code(s): F41.9 - Anxiety disorder, unspecified Category: Medical Plan: Continue current meds. Plan History of Present Illness The patient is a 58-year-old female presenting with back pain and leg edema. She describes her back pain as severe and persistent despite daily doses of cyclobenzaprine, which partially alleviates muscular tension. The leg swelling intensifies after periods of standing and does not resolve quickly. The patient also experiences issues with balance and coordination, feeling a disconnect between her legs and body while ambulating. Hand tremors that worsen in the evening affect her activities. Chronic shoulder pain is mentioned with previous need for orthopedic surgical intervention that remains incomplete, limiting her mobility. Additionally, the patient reports a potential toenail infection without recent medical intervention. 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 Minimal marijuana use is noted. Social History - Lives alone. - Experiences issues with balance and avoids driving. - Has a history of excessive alcohol use in the late post maternal ; currently sober with occasional alcohol use. - Smokes marijuana occasionally. Review of Systems - Musculoskeletal: Reports back pain and chronic shoulder pain; reports leg edema. - Neurological: Reports impaired balance and coordination; reports hand tremors. - Integumentary: Reports a potential toenail infection. - Cardiovascular: Reports issues with circulation leading to leg pain. Physical Exam General: Cooperative and healthy appearing Nutritional Appearance: Well nourished Orientation/consciousness: Patient oriented x3 Limitations: No limitations Head: Normal to inspection General: Appearance normal, both eyes and all related structures Neck: Normal visual inspection Chest: Normal palpation of entire chest wall Respiratory: N ormal respiratory effort Neurology: Patient oriented x3, gait is slow and unsteady, hands shake a lot, writing becomes scribbly in the evening. Results - Labs: Blood work done in May was reported as normal. Plan 1. Back Pain - Review cyclobenzaprine dosage and monitor pain levels. 2. Leg Edema - Consider compression and evaluate circulatory function. 3. Poor Circulation - Maintain mobility and consider compression garments. 4. Impaired Balance And Coordination - Monitor symptoms with consideration for neurology referral. 5. Tremors - Observe tremors; evaluate impact on daily function. 6. Chronic Shoulder Pain - Refer to orthopedics, review imaging, consider surgery. 7. Toenail Infection - Start antibiotics and schedule reassessment. Discussion Notes During the visit, I discussed each of the patient?s concerns, including persistent back pain and leg edema, and considered adjustments to her medication regimen. Given her reports, I acknowledged the importance of monitoring her circulation and suggested possible modification using compression solutions. I touched on alternatives for coordination issues, potentially referring her to neurology if the symptoms failed to stabilize. We covered potential surgical solutions for her long-standing shoulder pain, agreeing a referral to orthopedics was necessary. For her suspected toenail infection, I explained the necessity of antibiotic therapy to resolve her complaint. I also noted her sobriety history and current occasional alcohol use. Plans for follow-up and evaluation were outlined with a focus on symptom resolution and management. Patient Instructions - Continue taking your medications as prescribed. - Monitor the swelling in your legs; elevate them when possible. - Use any prescribed antibiotics for your toenail as directed and follow up in three months. - If you notice worsening tremors or balance issues, contact us sooner. - A referral to orthopedics has been made; await contact for your appointment. - Do not interfere with the infected toenail; allow prescribed treatment to work.
--- OUTSIDE RECORDS SUMMARY | 2024-08-20 12:32 | XMS_ITS | Clinical Summary ---
Author Organization [facility] ity Address [address] [place] [address] Care Team Providers Care Diabetes Educator Name Role Phone Unavailable Primary Care Provider Unavailabl e Social History Tobacco Use Types Packs/Day Years Used Date Smoking Tobacco: Never Assessed Comments Unknown Sex and Gender Information Value Date Recorded Sex Assigned at Not on file Legal Sex Female 10:02 PM EST Gender Identity Not on file Sexual Orientation Not on file Plan of Treatment Health Maintenance Due Date Last Done Comments Breast Cancer Screening 1965 DTaP,Tdap,and Td Vaccines (1 - Tdap) 11/14/1982 Cervical Cancer Screening: P ap Smear 11/14/1984 Pneumococcal Vaccine: 50+ Ye ars (1 of 1 - PCV) 11/14/2013 Zoster Vaccines (1 of 2) 11/14/2013 COVID-19 Vaccine ( - 2023-2 5 season) 2023 Influenza Vaccine (Season Ended) 2024 RSV Immunization Adult Patie nts (1 - 1-dose 75+ series) 11/14/2038 HIB Vaccines Aged Out No longer eligi [...] on patient's age to complete this topic MMR Vaccines Aged Out No longer eligi ble based on patient's age to complete this topic Meningococcal ACWY Vaccine Aged Out N o longer eligible based on patient's age to complete this topic Meningococcal B Vaccine Aged Out No l onger eligible based on patient's age to complete this topic Pneumococcal Vaccine: Pediat rics (0 to 5 Years) and At-Risk Patients (6 to 64 Years) Aged Out No longer eligible b ased on patient's age to complete this topic RSV Immunization Patients Un tamika 20 months Aged Out No longer eligible b ased on patient's age to complete this topic Varicella Vaccines Aged Out No longer eligible based on patient's age to complete this topic
--- OUTSIDE RECORDS SUMMARY | 2024-08-20 12:32 | XMS_ITS | Encounter Summary ---
Author Organization [employer] Address [address] [place] [address] Care Team Providers Care Pinner Printed Circuit Boards Name Role Phone Unavailable Primary Care Provider Unavailabl e Encounter Details Date Type Department Care Team (Latest Contact Info) Description 05/28/2018 Abstract [facility] CONVERSIONS Dental, Provider, DDS Social [...]
--- OUTSIDE RECORDS SUMMARY | 2024-08-20 12:32 | XMS_ITS | Clinical Summary ---
Author Organization [employer] Address [address] [place] [address] Care Team Providers Care Tugger Operator Name Role Phone Unavailable Primary Care [...] Most Recently Relevant to Health Maintenance Insurance [facility] MEDICAID STAND ADULT
== END 2024-08-20 11:53 | disposition home or self-care (01) ==
LOC: HO.HMCHD 11:05
PROVIDERS: PCP Internal Medicine; Visit Provider Internal Medicine
DX: F41.9 Anxiety disorder, unspecified (principal)

== ENCOUNTER → 2024-08-20 11:04 | Outpatient (BNVA) | payer MEDICARE, MEDICAID, SELFPAY | PROVIDERS: PCP Internal Medicine; Visit Provider Internal Medicine | DX: F41.9 Anxiety disorder, unspecified (principal) | CPT/HCPCS: 99202 ==

== ENCOUNTER 2024-09-15 14:30 | Outpatient (AMB) | payer MEDICARE, MEDICAID, SELFPAY ==
--- NOTE | 2024-09-15 14:02 | MHC.PC.OV ---
Vital Signs 09/15/24 14:04 Height 5 ft 2 in Weight 125 lb BMI 22.9 BP 126/72 Blood Pressure Location Lt brachial Position Sitting Pulse 85 Pulse Source Pulse Oximeter Temp 97.4 F Temp Source Axillary Pulse Oximetry (%) 99 Oxygen Delivery Method Room Air Intake Visit Reasons: Problem with Toe Bulb Inspector Required: No Accompanied by: Self / Same As Patient Allergies aspirin [ASPIRIN] Adverse Reaction (Intermediate, Verified 09/15/24 14:04) STOMACH ISSUES oxycodone [Percocet] Adverse Reaction (Unknown, Verified 09/15/24 14:04) Dizziness Tobacco use date assessed: 09/15/24 Dental Screening Dental Screen Date: 09/15/24 Did you have a dental visit in the last 12 months?: No Did you have a dental problem in the last 6 months where you did not have access to dental care?: No [facility] Medical History Migraine headache Hyperlipidemia Anxiety Adhesive capsulitis of left shoulder Rotator cuff impingement syndrome of left shoulder Surgical History History of arthroscopy of left shoulder H/O section Family History Mother No problems noted. Father No problems noted. Social History Housing: Apartment Patient Tobacco Use Status: Former Tobacco user e-Cigarette/Vaping Use: Former Use service: No Current occupational status: disabled Current occupation: Right Handed Cognitive needs: No Hearing needs: No Vision needs: Yes (rx glasses) Questionnaire PHQ-9 Over the last 2 weeks, how often have you been bothered by any of the following problems? 1. Little interest or pleasure in doing things: not at all 2. Feeling down, depressed, or hopeless: several days 3. Trouble falling or staying asleep, or sleeping too much: not at all 4. Feeling tired or having little energy: several days 5. Poor appetite or overeating: not at all 6. Feeling bad about yourself - or that you are a failure or have let yourself or your family down: not at all 7. Trouble concentrating on things, such as reading the newspaper or watching television: not at all 8. Moving or speaking so slowly that other people could have noticed. Or the opposite - being so fidgety or restless that you have been moving around a lot more than usual: not at all 9. Thoughts that you would be better off or of hurting yourself in some way: not at all Total score: 2 Source: Developed by Drs. Isaiah Hernandez, Jana More, Hernandez William and colleagues, with an educational alejandro from [employer]. Thrive Questionnaire Date Thrive assessed: 09/15/24 I am a: Patient Within the past 12 months, did the food you bought not last and you didn't have the money to get more?: Never true Within the past 12 months, did you worry whether your food would run out before you got money to buy more?: Never true Do you have trouble paying for medicines?: No Do you have trouble getting transportation to medical appointments?: No Do you have trouble paying your heating and electricity bill?: No Do you have trouble taking care of your child, family member or friend?: No Do you have trouble with day-to-day activities such as bathing, preparing meals, shopping, managing finances, etc.?: No Are you currently unemployed and looking for a job?: No Are you interested in more education?: No THRIVE Score: 0 AUDIT C Alcohol Use Questionnaire (AUDIT-C) 1. How often do you have a drink containing alcohol?: Monthly or less 2. How many drinks containing alcohol do you have on a typical day when you are drinking?: 1 or 2 3. How often do you have six or more drinks on one occasion?: Less than monthly Total Score: 2 JAVIER-7 AMB Questionnaire JAVIER-7 Date JAVIER - 7 assessed: 09/15/24 Feeling nervous, anxious, or on edge: 1 = Several days Not being able to stop or control worryin = Not at all Worrying too much about different things: 0 = Not at all Trouble relaxin = Not at all Being so restless that it is hard to sit still: 0 = Not at all Becoming easily annoyed or irritable: 0 = Not at all Feeling afraid as if something awful might happen: 0 = Not at all Total JAVIER-7 score (0-4 normal; 5-9 mild; 10-14 moderate; 15-21 severe): 1 Source: Developed by Drs. Isaiah Hernandez, Jana More, Hernandez William and colleagues, with an educational alejandro from [employer]. Physical exam (Primary Care) Vital Signs: Last Vital Signs Temp 97.4 F 09/15/24 14:04 Pulse 85 09/15/24 14:04 BP 126/72 09/15/24 14:04 Pulse Ox 99 09/15/24 14:04 Oxygen Delivery Method Room Air 09/15/24 14:04 BMI result Body Mass Index 22.9 Tobacco/Smoking Status: Tobacco use Status Tobacco use date assessed 09/15/24 09/15/24 14:05 Patient Tobacco Use Status Former Tobacco user 09/15/24 14:03 e-Cigarette/Vaping Use Former Use 09/15/24 14:03 PHQ-9: PHQ-9 Score PHQ-9: Total score 2 09/15/24 14:47 Thrive Assessment: Date of Thrive Assessment Date Thrive assessed 09/15/24 09/15/24 14:05 Coding Level of Care Code Est Pt Level 4 (15105) Complex EM visit Add On G2211 Diagnoses Rotator cuff impingement syndrome of left shoulder M75.42 Anxiety F41.9 Assessment & Plan Assessment & Plan (1) Rotator cuff impingement syndrome of left shoulder: Code(s): M75.42 - Impingement syndrome of left shoulder Category: Medical Plan: PT has been ordered (2) Anxiety: Code(s): F41.9 - Anxiety disorder, unspecified Category: Medical Plan: Symptoms are more anxiety related. Her toe appears normal. SHe has swelling and erythema in lower ext consistent with poor circulation and alcohol related. Plan History of Present Illness - The patient is a 58-year-old female presenting with balance issues and swelling of lower legs. - She describes a sensation of feeling off-balance and swaying, noting it as a new and unfamiliar experience. - Past lancing of cysts is noted but not linked to current symptoms. - She denies any issues with eating. - Reports painful swelling in her lower extremities, which worsens with prolonged standing. - Describes difficulty and pain in getting up from a seated position due to swelling in the feet and ankles. - Previous blood tests were conducted, though the patient cannot recall the details of the findings. Social History Review of Systems - Neurological: Reports feeling off-balance and slow. - Musculoskeletal: Reports swelling and pain in lower extremities, notably in feet and ankles. - General: Denies difficulty with eating. Physical Exam General: Cooperative and healthy appearing Nutritional Appearance: Well nourished Orientation/consciousness: Patient oriented x3 Limitations: No limitations Head: Normal to inspection General: Appearance normal, both eyes and all related structures Neck: Normal visual inspection Chest: Normal palpation of entire chest wall Respiratory: N ormal respiratory effort Neurology: Patient oriented x3, reports feeling off balance and slow, swaying sensation. Results Plan 1. Balance Disturbance - Investigate potential causes and refer for neurologic evaluation. - Review prior blood tests for insights. 2. Swelling Of Lower Extremities - Monitor and identify potential causes, such as vascular issues. - Encourage leg elevation and reduce prolonged standing. Discussion Notes During our discussion, we explored the patient's symptoms of balance disturbance and lower extremity swelling. I emphasized the importance of identifying underlying causes, particularly for the balance issues, which may necessitate neurologic evaluation. We discussed keeping the legs elevated and reducing periods of standing to alleviate the swelling and pain in the lower legs. I encouraged the patient to provide prior blood test results to aid in further investigation. Patient Instructions - Elevate your legs when possible to reduce swelling. - Try to limit the amount of time you spend standing to decrease discomfort and swelling. - Keep track of your symptoms and report any changes or persistent pain. - Bring in any past blood test results for review. Orders: Orders PT Evaluation and Treatment Today M75.42 - Impingement syndrome of left shoulder Basic Metabolic Panel Today F41.9 - Anxiety disorder, unspecified Lipid Panel Today F41.9 - Anxiety disorder, unspecified Liver Panel Today F41.9 - Anxiety disorder, unspecified Thyroid Stimulating Hormone Today F41.9 - Anxiety disorder, unspecified UA and rflx microscopic Today F41.9 - Anxiety disorder, unspecified Complete Blood Count no Diff Today F41.9 - Anxiety disorder, unspecified
[2024-09-15 14:04] VITALS: BP 126/72; PULSE 85; TEMP 36.3; O2SAT 99; BMI 22.9
--- OUTSIDE RECORDS SUMMARY | 2024-09-15 15:47 | XMS_ITS | Clinical Summary ---
Author Organization [facility] ity Address [address] [place] [address] Care Team Providers Care Nude Model Name Role Phone Unavailable Primary Care Provider [...]
== END 2024-09-15 15:23 | disposition home or self-care (01) ==
LOC: HO.HMCHD 14:31
PROVIDERS: PCP Internal Medicine; Visit Provider Internal Medicine
DX: M75.42 Impingement syndrome of left shoulder (principal); F41.9 Anxiety disorder, unspecified

== ENCOUNTER → 2024-09-15 14:30 | Outpatient (BNVA) | payer MEDICARE, MEDICAID, SELFPAY | PROVIDERS: PCP Internal Medicine; Visit Provider Internal Medicine | DX: M75.42 Impingement syndrome of left shoulder (principal); F41.9 Anxiety disorder, unspecified | CPT/HCPCS: 99212 ==

== ENCOUNTER 2024-11-03 08:31 | Outpatient (REF) | payer MEDICARE, MEDICAID, SELFPAY ==
--- OUTSIDE RECORDS SUMMARY | 2024-11-03 08:41 | XMS_ITS | Clinical Summary ---
Author Organization [facility] ity Address [address] [place] [address] Care Team Providers Care Asset Protection Representative Name Role Phone Unavailable Primary Care Provider [...] Vaccine ( - 2023-2 5 season) 2023 Depression Screening 04/16/2024 Influenza Vaccine (#1) 2024 RSV Immunization Adult Patie nts (1 [...]
--- OUTSIDE RECORDS SUMMARY | 2024-11-03 08:41 | XMS_ITS | Clinical Summary ---
Author Organization [employer] Address [address] [place] [address] Care Team Providers Care Procedures Tech Name Role Phone Unavailable Primary Care Provider [...] Active Active Problems No known active problems Encounters Date Type Department Care Team Description 09/09/2024 Orders Only [facility] [address] [place] [address] Guicho Jenkins DMD from Last 3 Months Social History Tobacco Use Types Packs/Day Years [...] Panel 1965 SDOH Screening 1965 Sigmoidoscopy 1965 Disability Screening 1963 Alcohol/Substance Use Screening 1975 Hepatitis C Screening 11/14/1981 DTaP/Tdap/Td Vaccines (1 - Tdap) 11/14/1982 Pneumococcal Vaccine: 50+ Years (1 of 2 - PCV) 11/14/1982 Pap Smear 11/14/1984 Cervical Cancer Screening 11/14/1993 HPV/Cotest 11/14/1993 Mammogram 2003 Zoster Vaccines (1 of 2) 11/14/2013 COVID-19 Vaccine ( season) 2023 04/12/2021, 09/01/2020, 08/10/2020 Dental Oral Exam 06/14/2024 12/13/2023, 03/2019, 05/22/2016, Additional history exists Dental Prophylaxis 06/14/2024 12/13/2023, 0 11/24/2022, 06/18/2019, Additional history exists Tobacco Screening 12/12/2024 12/13/2023 Dental X-Ray: Bitewings 12/13/2024 12/13/19 24, 04/10/2023, 11/24/2022, Additional history exists Influenza Vaccine (#1) 2024 Dental X-Ray: Full Mouth 12/13/2026 024, 05/28/2018, 11/26/2014 RSV Patients and Patients Aged 60 years or older (1 - 1-dose 75+ series) 11/14/2038 HIB [...] Most Recently Relevant to Health Maintenance Insurance [facility] MEDICAID STAND ADULT
--- OUTSIDE RECORDS SUMMARY | 2024-11-03 08:41 | XMS_ITS | Patient Health Record ---
Author Organization [facility] Address [address] [place] [address] Care Team Providers Care Water And Fire Technician Name Role Phone Zachery (RETIRED) Mahamed HUANG Primary Care Provide r Unavailable Isaiah Batres Unavailable [phone] Reason For Referral No Information Plan Of Treatment No Information Insurance Providers Payer Name Payer Address Payer Phone Subscriber Number Group Number Insured Name Patient Relationship to Insured Coverage Start Date Coverage End Date MEDICARE OF [place] [address] [place] [address] [id number] ASHLEY HOWARD Self - patient is the insured MEDICAID OF [facility] [address] [place] [address] [id number] ASHLEY HOWARD Self - patient is the insured Medical (General) History Medical History History ICD Code egd 01-14-2010 gerd abdominal pain anxiety depression DVT asthma migraines Surgical History Surgery Date(Month/Year) Caesarean section
[2024-11-03 10:21] LABS: Hematocrit 37.6 % (37.0-47.0); Hemoglobin 11.9 g/dl (12.0-16.0); Mean Corpuscular HGB Conc 31.6 g/dl (31.0-35.0); Mean Corpuscular Hemoglobin 27.7 pg (27.0-33.0); Mean Corpuscular Volume 87.4 fL (80.0-98.0); NRBC Abs Auto 0.000 X10*3/uL (0.0-0.012); NRBC Pct Auto 0.0 /100WBC (0.0-0.2); Platelet Count 210 X10*3/uL (160-400); Red Blood Count 4.30 X10*6/uL (4.20-5.50); White Blood Count 6.0 X10*3/uL (4.8-10.8)
[2024-11-03 10:54] LABS: Alanine Aminotransferase 16 U/L (0-31); Albumin Level 4.1 g/dL (3.5-5.0); Alkaline Phosphatase 70 U/L (39-117); Anion Gap 10 (12-20); Aspartate Amino Transferase 21 U/L (5-31); Blood Urea Nitrogen 14 mg/dL (9-16); Calcium 8.7 mg/dL (8.4-10.2); Carbon Dioxide 23 mmol/L (22-29); Chloride 113 mmol/L (96-108); Cholesterol 177 mg/dL (<200); Estimated Glomerular Filt Rate 47; HDL Cholesterol 56 mg/dL (>40); Potassium 3.9 mmol/L (3.3-5.1); Sodium 142 mmol/L (135-145); Thyroid Stimulating Hormone 3.96 uIU/mL (0.32-4.0); Total Protein 6.3 g/dL (6.5-8.0); Triglycerides 97 mg/dL (<150)
== END 2024-11-03 08:32 | disposition home or self-care (01) ==
LOC: HO.10HDL 08:31
PROVIDERS: Visit Provider Internal Medicine
DX: F41.9 Anxiety disorder, unspecified (principal); Z13.6 Encounter for screening for cardiovascular disorders
CPT/HCPCS: 36415; 80048; 80061; 80076; 81001; 84443; 85027

== ENCOUNTER 2024-11-04 | Outpatient (REF) | payer MEDICARE, MEDICAID, SELFPAY ==
[2024-11-04 14:32] LABS: Appearance Urine Clear; Glucose Urine UA Negative (Negative); PH 6.0 (5.0-9.0); Specific Gravity - Urine 1.025 (1.005-1.025); UMIC TRIGGER UA YES
--- OUTSIDE RECORDS SUMMARY | 2024-11-05 16:01 | XMS_ITS | Clinical Summary ---
Author Organization [facility] ity Address [address] [place] [address] Care Team Providers Care Education Courses Sales Representative Name Role Phone Unavailable Primary Care [...]
--- OUTSIDE RECORDS SUMMARY | 2024-11-05 16:01 | XMS_ITS | Clinical Summary ---
Author Organization [employer] Address [address] [facility] 7t [place] [address] Care Team Providers Care Golf Course Keeper Name Role Phone Unavailable Primary Care Provider [...] Department Care Team Description 09/09/2024 Orders Only [facility] [address] [place] [address] Guicho Jenkins DMD from Last 3 Months [...] Most Recently Relevant to Health Maintenance Insurance [facility] MEDICAID STAND ADULT
--- OUTSIDE RECORDS SUMMARY | 2024-11-05 16:01 | XMS_ITS | Patient Health Record ---
Author Organization [facility] Address [address] [place] [address] Care Team Providers Care Rigger Apprentice Name Role Phone Zachery (RETIRED) Mahamed HUANG Primary Care Provide r Unavailable Isaiah Batres Unavailable [phone] Reason For Referral No Information Plan Of Treatment No Information Insurance Providers Payer Name Payer Address Payer Phone Subscriber Number Group Number Insured Name Patient Relationship to Insured Coverage Start Date Coverage End Date MEDICARE OF [place] [address] [place] [address] [id number] ASHLEY HOWARD Self - patient is the insured MEDICAID OF [facility] [address] [place] [address] [id number] ASHLEY HOWARD Self - patient is the insured Medical (General) History Medical History History ICD Code egd 01-14-2010 gerd abdominal pain anxiety depression DVT asthma migraines Surgical History Surgery Date(Month/Year) Caesarean section
== END 2024-11-04 00:01 | disposition home or self-care (01) ==
LOC: HO.LNP
PROVIDERS: Visit Provider Internal Medicine
DX: F41.9 Anxiety disorder, unspecified (principal)
CPT/HCPCS: 81001

== ENCOUNTER 2024-12-22 10:55 | Outpatient (AMB) | payer MEDICARE, MEDICAID, SELFPAY ==
--- NOTE | 2024-12-22 11:05 | A.OFFPC_ITS ---
Vital Signs 12/22/24 11:12 Height 5 ft 2 in Weight 52.617 kg BMI 21.2 BP 132/68 Respiration 14 Pulse 92 Pulse Source Pulse Oximeter Temp 97.8 F Temp Source Temporal Artery Scan Pulse Oximetry (%) 99 Oxygen Delivery Method Room Air Intake Visit Reasons: 3 Month F/U Manager Rail Required: No Accompanied by: Self / Same As Patient Allergies aspirin (ASPIRIN) Adverse Reaction (Intermediate, Verified 12/22/24 11:06) STOMACH ISSUES oxycodone (Percocet) Adverse Reaction (Unknown, Verified 12/22/24 11:06) Dizziness Tobacco use date assessed: 09/15/24 Dental Screening Dental Screen Date: 09/15/24 HPI HPI Comments History of Present Illness Details 59-year-old female with history of hyper lipidemia, anxiety, GERD, depression, COPD presenting to the office today for management of chronic conditions and follow-up. She is here accompanied by her sister, Aruna. Bilateral DVT-years ago . Lifelong Xarelto she is compliant with. HLD- on atorvastatin 40 daily. LDL 102 GERD- stable on omeprazole 40mg bid MDD/anxiety- following with psychiatry and therapist. On clonazepam bid, hydroxyzine, bupropion, sertraline, trazodone. Feel reports feeling anxious COPD- on albuterol, occ use Bilateral rotator cuff impingement-has not followed with Orthopedic surgery in several years. Did have arthroscopy of the left shoulder and at that time was told this needed revision as well as arthroscopy of the right shoulder. Has not been seen since Migraines-on Topamax for prophylaxis Concerns: Woke up like I had a handover . Couldnt keep head up, felt nauseas. Laid on recliner, but still had difficulty keeping her head up. In office, no head drop, good neck control. Has chronic neck pain, on cyclobenzaprine. She also reports that she has felt off balance and reports a ?prickly? sensation in her hands and feet which she reports started this morning. However on review of chart, there have been multiple documentation of these symptoms which she then does acknowledge have been ongoing. ALso reports muscle twitching Varicose veins of the right lower extremity with leg cramping and occasional vein prominance ROS: General: No fevers, malaise, unintentional weight loss HEENT: No blurred vision, diplopia. No sore throat, nasal congestion, rhinorrhea, sinus pain, ear pain Cardiovascular: No chest pain, palpitations, or leg edema Respiratory: No shortness of breath, wheezing, cough GI: No abdominal pain, nausea, vomiting, diarrhea, constipation, melena, hematochezia : No dysuria, hematuria, increased urinary frequency, decreased urinary output MSK: No myalgia, back pain Neuro: No headaches, weakness, paresthesias Skin: No rashes or lesions EXAM: Constitutional - Awake and Alert, No apparent distress Eyes - PERRL Neck - no head drop. Supple with full ROM Cardiovascular - S1S2, RRR, No edema Respiratory - Normal lung expansion, Normal respiratory effort, No respiratory distress, CTA bilaterally Extremities - no calf tenderness bilaterally, no swelling Skin - Warm/Dry Neurological - Alert & oriented x3, slow speech. 5/5 strength BUE. CN II- XII in tact Psychological - Appropriate affect [facility] Medical History (Updated 12/22/24 @ 12:46 by LUIS F Michaud) DVT, bilateral lower limbs MDD (major depressive disorder) Migraine headache Hyperlipidemia Anxiety Adhesive capsulitis of left shoulder Rotator cuff impingement syndrome of left shoulder Surgical History History of arthroscopy of left shoulder H/O section Family History Mother No problems noted. Father No problems noted. Social History Housing: Apartment Patient Tobacco Use Status: Former Tobacco user e-Cigarette/Vaping Use: Former Use service: No Current occupational status: disabled Current occupation: Right Handed Cognitive needs: No Hearing needs: No Vision needs: Yes (rx glasses) Questionnaire Thrive Questionnaire Date Thrive assessed: 09/15/24 JAVIER-7 AMB Questionnaire JAVIER-7 Date JAVIER - 7 assessed: 09/15/24 Source: Developed by Drs. Isaiah Hernandez, Jana More, Hernandez William and colleagues, with an educational alejandro from [employer] Physical exam (Primary Care) Vital Signs: Last Vital Signs Temp 97.8 F 12/22/24 11:12 Pulse 92 12/22/24 11:12 Resp 14 12/22/24 11:12 BP 132/68 12/22/24 11:12 Pulse Ox 99 12/22/24 11:12 Oxygen Delivery Method Room Air 12/22/24 11:12 BMI result Body Mass Index 21.2 Tobacco/Smoking Status: Tobacco use Status Tobacco use date assessed 09/15/24 12/22/24 11:08 Patient Tobacco Use Status Former Tobacco user 12/22/24 11:08 e-Cigarette/Vaping Use Former Use 12/22/24 11:08 Thrive Assessment: Date of Thrive Assessment Date Thrive assessed 09/15/24 12/22/24 11:08 Coding Level of Care Code Est Pt Level 4 (29918) Complex EM visit Add On G2211 Diagnoses Weakness of neck M53.82 Paresthesia and pain of both upper extremities R20.2; M79.601; M79.602 MDD (major depressive disorder) F32.9 DVT, bilateral lower limbs I82.403 Varicose vein of leg I83.90 Rotator cuff impingement syndrome of left shoulder M75.42 Assessment & Plan Assessment & Plan (1) Weakness of neck: Code(s): M53.82 - Other specified dorsopathies, cervical region Category: Medical Plan: Etiology unclear. No weakness in the neck noted on exam and strength of the upper extremities intact bilaterally. Given accompanied symptoms and review of previous recommendations by my colleagues, she was referred to Neurology. (2) Paresthesia and pain of both upper extremities: Code(s): R20.2 - Paresthesia of skin; M79.601 - Pain in right arm; M79.602 - Pain in left arm Category: Medical Plan: As above (3) MDD (major depressive disorder): Code(s): F32.9 - Major depressive disorder, single episode, unspecified Category: Medical Plan: Uncontrolled. Advised to reach out to Psychiatry and therapy for further evaluation and management. Presentation seems baseline per her sister who is in the room. No alarm symptoms. Continue trazodone, sertraline, hydroxyzine, bupr opion, clonazepam (4) DVT, bilateral lower limbs: Code(s): I82.403 - Acute embolism and thrombosis of unspecified deep veins of lower extremity, bilateral Category: Medical Plan: Continue Xarelto (5) Varicose vein of leg: Code(s): I83.90 - Asymptomatic varicose veins of unspecified lower extremity Category: Medical Plan: Symptomatic. Referred to vascular surgery (6) Rotator cuff impingement syndrome of left shoulder: Code(s): M75.42 - Impingement syndrome of left shoulder Category: Medical Plan: Referred back to Orthopedic surgery. Plan Follow up in the office in 4 months. Orders: Referrals Neurology Referral G43.909 - Migraine, unspecified, not intractable, without status migrainosus, M53.82 - Other specified dorsopathies, cervical region, M79.601 - Pain in right arm, M79.602 - Pain in left arm, R20.2 - Paresthesia of skin, R25.3 - Fasciculation, R47.89 - Other speech disturbances Vascular Surgery Referral I83.90 - Asymptomatic varicose veins of unspecified lower extremity Orthopedics Referral M75.41 - Impingement syndrome of right shoulder, M75.42 - Impingement syndrome of left shoulder
[2024-12-22 11:12] VITALS: BP 132/68; PULSE 92; RESP 14; TEMP 36.6; O2SAT 99; BMI 21.2
--- OUTSIDE RECORDS SUMMARY | 2024-12-22 13:18 | XMS_ITS | Clinical Summary ---
Author Organization [facility] Address [address] [place] [address] Care Team Providers Care Catalogue Illustrator Name Role Phone Unavailable Primary Care Provider [...] 11/14/2013 Zoster Vaccines (1 of 2) 11/14/2013 Depression Screening 04/16/2024 COVID-19 Vaccine ( - 2023-2 5 season) 2024 Influenza Vaccine (#1) 2024 RSV Immunization Adult [...]
--- OUTSIDE RECORDS SUMMARY | 2024-12-22 13:19 | XMS_ITS | Patient Health Record ---
Author Organization [facility] Address [address] [place] [address] Care Team Providers Care Dental Sales Representative Name Role Phone Zachery (RETIRED) Mahamed HUANG Primary Care Provide r Unavailable Isaiah Batres Unavailable [phone] Reason For Referral No Information Plan Of Treatment No Information Insurance Providers Payer Name Payer Address Payer Phone Subscriber Number Group Number Insured Name Patient Relationship to Insured Coverage Start Date Coverage End Date MEDICARE OF [place] [address] [place] [address] [id number] ASHLEY HOWARD Self - patient is the insured MEDICAID OF [facility] [address] [place] [address] [id number] ASHLEY HOWARD Self - patient is the insured Medical (General) History Medical History History ICD Code egd 01-14-2010 gerd abdominal pain anxiety depression DVT asthma migraines Surgical History Surgery Date(Month/Year) Caesarean section
--- OUTSIDE RECORDS SUMMARY | 2024-12-22 13:19 | XMS_ITS | Clinical Summary ---
Author Organization [employer] Address [address] [facility] [address] [place] [address] Care Team Providers Care Bingo Clerk Name Role Phone Unavailable Primary Care Provider [...] FIT 1963 FOBT 1963 HIV Screening 1963 SDOH Screening 1963 Sigmoidoscopy 1963 Disability Screening 1963 Alcohol/Substance Use Screening 1975 Hepatitis C Screening 11/14/1981 DTaP/Tdap/Td Vaccines (1 - Tdap) 11/14/1982 Pneumococcal Vaccine: 50+ Years (1 of 2 - PCV) 11/14/1982 Pap Smear 11/14/1984 Cervical Cancer Screening 11/14/1993 HPV/Cotest 11/14/1993 Mammogram 2003 Zoster Vaccines (1 of 2) 11/14/2013 Dental Oral Exam 06/14/2024 12/13/2023, 03/2019, 05/22/2016, Additional history exists Dental Prophylaxis 06/14/2024 12/13/2023, 0 11/24/2022, 06/18/2019, Additional history exists Tobacco Screening 12/12/2024 12/13/2023 Dental X-Ray: Bitewings 12/13/2024 12/13/19 24, 04/10/2023, 11/24/2022, Additional history exists COVID-19 Vaccine ( season) 2024 04/12/2021, 09/01/2020, 08/10/2020 Influenza Vaccine (#1) 2024 Dental X-Ray: Full [...] Most Recently Relevant to Health Maintenance Insurance [facility] MEDICAID STAND ADULT
--- OUTSIDE RECORDS SUMMARY | 2024-12-22 13:19 | XMS_ITS | Encounter Summary ---
Author Organization [employer] Address [address] [facility] 7[address] [place] [address] Care Team Providers Care Venetian Blind Machine Operator Name Role Phone Unavailable Primary Care Provider Unavailabl e Encounter Details Date Type Department Care Team (Latest Contact Info) Description 05/28/2018 Abstract C CONVERSIONS Dental, Provider, DDS Social History Tobacco [...]
== END 2024-12-22 11:46 | disposition home or self-care (01) ==
LOC: HO.HMCHD 10:55
PROVIDERS: PCP Internal Medicine; Visit Provider Physician Assistant
DX: M53.82 Other specified dorsopathies, cervical region (principal); R20.2 Paresthesia of skin; M79.601 Pain in right arm; M79.602 Pain in left arm; F32.9 Major depressive disorder, single episode, unspecified; I82.403 Acute embolism and thrombosis of unspecified deep veins of lower extremity, bilateral; I83.90 Asymptomatic varicose veins of unspecified lower extremity; M75.42 Impingement syndrome of left shoulder

== ENCOUNTER → 2024-12-22 10:55 | Outpatient (BNVA) | payer MEDICARE, MEDICAID, SELFPAY | PROVIDERS: PCP Internal Medicine; Visit Provider Physician Assistant | DX: M53.82 Other specified dorsopathies, cervical region (principal); R20.2 Paresthesia of skin; M79.601 Pain in right arm; M79.602 Pain in left arm; F32.9 Major depressive disorder, single episode, unspecified; I83.90 Asymptomatic varicose veins of unspecified lower extremity; M75.42 Impingement syndrome of left shoulder; M75.41 Impingement syndrome of right shoulder; G43.909 Migraine, unspecified, not intractable, without status migrainosus; E78.5 Hyperlipidemia, unspecified; K21.9 Gastro-esophageal reflux disease without esophagitis; J44.9 Chronic obstructive pulmonary disease, unspecified; R25.3 Fasciculation; R47.89 Other speech disturbances; Z86.718 Personal history of other venous thrombosis and embolism; Z79.01 Long term (current) use of anticoagulants; Z79.899 Other long term (current) drug therapy | CPT/HCPCS: 99212 ==

== ENCOUNTER 2025-02-12 09:23 | Outpatient (REF) | payer MEDICARE, MEDICAID, SELFPAY ==
--- OUTSIDE RECORDS SUMMARY | 2025-02-12 10:49 | XMS_ITS | Clinical Summary ---
Author Organization [facility] it[facility] Address [address] [place] [address] Care Team Providers Care Installation Helper Name Role Phone Unavailable Primary Care Provider [...]
--- OUTSIDE RECORDS SUMMARY | 2025-02-12 10:50 | XMS_ITS | Encounter Summary ---
Author Organization [employer] Address [address] [facility] [address] [place] [address] Care Team Providers Care Cheese Maker Name Role Phone Unavailable Primary Care Provider [...]
--- OUTSIDE RECORDS SUMMARY | 2025-02-12 10:50 | XMS_ITS | Patient Health Record ---
Author Organization [facility] Address [address] [place] [address] Care Team Providers Care Tractor Trailer Moving Van Driver Name Role Phone Zachery (RETIRED) Mahamed HUANG Primary Care Provide r Unavailable Isaiah Batres Unavailable [phone] Reason For Referral No Information Plan Of Treatment No Information Insurance Providers Payer Name Payer Address Payer Phone Subscriber Number Group Number Insured Name Patient Relationship to Insured Coverage Start Date Coverage End Date MEDICARE OF [place] [address] [place] [address] [phone] [id number] ASHLEY HOWARD Self - patient is the insured MEDICAID OF [facility] [address] [place] [address] [id number] ASHLEY HOWARD Self - patient is the insured Medical (General) History Medical History History ICD Code egd 01-14-2010 gerd abdominal pain anxiety depression DVT asthma migraines Surgical History Surgery Date(Month/Year) Caesarean section
--- OUTSIDE RECORDS SUMMARY | 2025-02-12 10:50 | XMS_ITS | Clinical Summary ---
Author Organization [employer] Address [address] [facility] [address] [place] [address] Care Team Providers Care Linecasting Machine Keyboard Operator Name Role Phone Unavailable Primary Care [...] 60 MG tablet 2 times daily. Active sertraline (Zoloft) 50 MG tablet 12/24/2024 Active Active Problems No known active problems Encounters Date Type Department Care Team Description 01/20/2025 12:45 PM EDT Office Visit [facility] [address] [place], [place] [id number] Jb Vital Dental calculus (Primary Dx) from Last 3 Months Social History Tobacco [...] Sign Reading Time Taken Comments Blood Pressure 124/62 01/20/2025 12:49 PM EDT Pulse 88 01/20/2025 12:49 PM EDT Temperature - - Respiratory Rate - [...] of 2) 11/14/2013 COVID-19 Vaccine ( season) 2024 04/12/2021, 09/01/2020, 08/10/2020 Influenza Vaccine (#1) 2024 Dental Oral Exam 07/22/2025 01/20/2025, , 05/28/2018, Additional history exists Dental Prophylaxis 07/22/2025 01/20/2025, 0 12/13/2023, 11/24/2022, Additional history exists Tobacco Screening 01/20/2026 01/20/2025 Dental X-Ray: Bitewings 01/21/2026 01/21/20 25, 12/13/2023, 04/10/2023, Additional history exists Dental X-Ray: Full Mouth [...] Procedure Name Priority Date/Time Associated Diagnosis Comments COMPREHENSIVE PERIODONTAL EVALUATION - NEW OR ESTABLISHED PATIENT Routine 01/20/2025 12:45 PM EDT PERIODIC ORAL EVALUATION - ESTABLISHED PATIENT Routine 01/20/2025 12:45 PM EDT INTRAORAL - PERIAPICAL FIRST RADIOGRAPHIC IMAGE Routine 01/20/2025 12:45 PM EDT BITEWINGS - 4 RADIOGRAPHIC IMAGES Routine 01/20/2025 12:45 PM EDT CASE PRESENTATION, DETAILED AND EXTENSIVE TREATMENT PLANNING Routine 01/20/2025 12:45 PM EDT ORAL HYGIENE INSTRUCTIONS Routine 2024 12:45 PM EDT PROPHYLAXIS - ADULT Routine 01/20/2025 1 2:45 PM EDT INTRAORAL - PERIAPICAL EACH ADDITIONAL RADIOGRAPHIC IMAGE Routine 01/20/2025 12:45 PM EDT INTRAORAL - COMPLETE SERIES OF RADIOGRAPHIC IMAGES Routine 12/13/2023 11:00 AM EDT Dental calculus Dental caries from Last 3 Months or Most Recently Relevant to Health Maintenance [place] [address] [facility] MEDICAID STAND ADULT
== END 2025-02-12 09:24 | disposition home or self-care (01) ==
LOC: HO.10HDL 09:23
PROVIDERS: Visit Provider Student in an Organized Health Care Education/Training Program
DX: Z13.1 Encounter for screening for diabetes mellitus (principal)
CPT/HCPCS: 36415; 83036

== ENCOUNTER 2025-02-24 11:16 | Outpatient (AMB) | payer MEDICARE, MEDICAID, SELFPAY ==
[2025-02-24 11:23] VITALS: BMI 21.2
--- NOTE | 2025-02-24 11:23 | MHC.OFFVIS ---
Vital Signs 02/24/25 11:23 Height 5 ft 2 in Weight 116 lb BMI 21.2 Intake Visit Reasons: HEADING MACHINE OPERATOR/[facility] referral for VV Intake Note: HEADING MACHINE OPERATOR/ PCP referral for bilateral LE VV. Pt states hx of bilateral blood clots,states that happened in the 's. Pt states pain and heaviness in bilateral LE, states she looses balance and has difficulty walking distances. States she gets cramping as well, only in her feet. Director Video Required: No Accompanied by: Family/Other Allergies aspirin (ASPIRIN) Adverse Reaction (Intermediate, Verified 02/24/25 11:27) STOMACH ISSUES oxycodone (Percocet) Adverse Reaction (Unknown, Verified 02/24/25 11:27) Dizziness HPI HPI HEADING MACHINE OPERATOR/HMG referral for VV: Details: The patient is a 59-year-old female presenting with varicose veins. She reports significant soreness in her legs, particularly when walking or climbing stairs, which limits her mobility. The veins become painful and more prominent with prolonged standing or walking. The patient has a history of blood clots in her legs approximately 30 years ago and is currently on Xarelto for anticoagulation. She previously used Coumadin but experienced instability with it. She also reports a history of lower back pain due to a previous tailbone fracture that did not heal properly, causing her to use a TENS unit for pain management. The back pain occasionally radiates to her legs, potentially exacerbating her leg symptoms. The patient smokes approximately half a pack of cigarettes per day and denies alcohol use except on rare occasions. It has been affecting there daily activities including walking. It is noted more so in right leg. Patient denies any previous venous surgery or injections. Patient known prior history of DVT bilaterally after major depressive episode where she was immobile Patient denies any history of phlebitis. Trial of compression includes - [id number] They now present for vascular evaluation regarding their varicose veins. [facility] Medical History DVT, bilateral lower limbs MDD (major depressive disorder) Migraine headache Hyperlipidemia Anxiety Adhesive capsulitis of left shoulder Rotator cuff impingement syndrome of left shoulder Surgical History History of arthroscopy of left shoulder H/O section Family History Mother No problems noted. Father No problems noted. Social History (Updated 02/24/25 @ 11:30 by KARL Edmondson) Housing: Apartment Patient Tobacco Use Status: Current everyday Tobacco user Cigarettes Per Day: 10 e-Cigarette/Vaping Use: Former Use service: No Current occupational status: disabled Current occupation: Right Handed Cognitive needs: No Hearing needs: No Vision needs: Yes (rx glasses) Review of Systems Const Reports as per HPI ENT Reports no additional complaints Card Denies chest pain, Denies chest pain at rest and Denies chest pain with activity Resp Denies chest congestion and Denies cough GI Reports no additional complaints Musc Details: pain over varicosities, aching of lower extremities, swelling, cramping, heaviness and tiredness, itching Denies abnormal gait Skin/Breast Reports pruritus and Denies wounds Neuro Reports no additional complaints and Denies abnormal gait Psych Denies no additional complaints Physical Exam Vital Signs: BMI result Body Mass Index 21.2 Const General: cooperative, healthy appearing and comfortable Orientation/consciousness: oriented to person, oriented to place and oriented to time Neck Carotids: no bruits Chest Chest palpation & inspection: normal inspection of the chest and normal palpation of entire chest wall Resp Effort & Inspection: normal respiratory effort and able to speak in complete sentences Cardio Rate: regular rate Heart sounds: S1 normal heart sound present and S2 normal heart sound present Peripheral pulses: Peripheral pulses 2+ throughout GI Inspection: Yes normal to inspection Skin Other: +2 edema, large rope-like varicosities greater than 4 mm CEAP Classification C4 - skin color changes Ep - Etiology Primary As - superficial veins P - reflux General skin exam: dry skin Neuro General: oriented to person, oriented to place and oriented to time Extrem Right lower extremity: full ROM, normal capillary refill and edema Left lower extremity: full ROM, normal capillary refill and edema Psych Mental Status: mental status grossly normal Assessment & Plan Assessment & Plan (1) Varicose veins of right lower extremity with inflammation: Code(s): I83.11 - Varicose veins of right lower extremity with inflammation Category: Medical Plan: I discussed with the patient the need for a comprehensive ultrasound to evaluate her varicose veins and the function of the venous valves. We talked about the importance of compression stockings, leg elevation, and walking to manage her symptoms. The patient was informed about the continuation of Xarelto for anticoagulation and the use of a TENS unit for her back pain. Orders: Orders US venous duplex LE Today I83.11 - Varicose veins of right lower extremity with inflammation Coding Level of Care Code New Pt Level 4 (17828) Diagnoses Varicose veins of right lower extremity with inflammation I83.11
--- OUTSIDE RECORDS SUMMARY | 2025-02-24 13:30 | XMS_ITS | Patient Health Record ---
Author Organization [facility] Address [address] [place] [address] Care Team Providers Care Cargo Station Worker Name Role Phone Zachery (RETIRED) Mahamed HUANG Primary Care Provide r Unavailable Isaiah Batres Unavailable [phone] Reason For Referral No Information Plan Of Treatment No Information Insurance Providers Payer Name Payer Address Payer Phone Subscriber Number Group Number Insured Name Patient Relationship to Insured Coverage Start Date Coverage End Date MEDICARE OF [place] [address] [place] [phone] [id number] ASHLEY HOWARD Self - patient is the insured MEDICAID OF [facility] [address] [place] [address] [id number] ASHLEY HOWARD Self - patient is the insured Medical (General) History Medical History History ICD Code egd 01-14-2010 gerd abdominal pain anxiety depression DVT asthma migraines Surgical History Surgery Date(Month/Year) Caesarean section
--- OUTSIDE RECORDS SUMMARY | 2025-02-24 13:30 | XMS_ITS | Clinical Summary ---
Author Organization [employer] Address [address] [facility] [address] [place] [address] Care Team Providers Care Music Arranger Name Role Phone Unavailable Primary Care Provider [...] Description 01/20/2025 12:45 PM EDT Office Visit [facility] [address] [place], [place] [id number] Jb Vital Dental calculus (Primary Dx) from [...] Mass Index - - Plan of Treatment Upcoming Encounters Date Type Department Care Team (Late st Contact Info) Description 03/02/2025 1:30 PM EST Office Visit [facility] [address] [place] [address] Mayte Guillen, NELDAS [address] [place] [address] Health Maintenance Due Date Last Done Comments [...] Most Recently Relevant to Health Maintenance [place] [address] [facility]
--- OUTSIDE RECORDS SUMMARY | 2025-02-24 13:30 | XMS_ITS | Encounter Summary ---
Author Organization [employer] Address [address] [facility] [address] [place] [address] Care Team Providers Care Sewer And Cutter Finger Buff Material Name Role Phone Unavailable Primary Care Provider Unavailabl e Encounter Details Date Type Department Care Team (Latest Contact Info) Description 05/28/2018 Abstract [facility] CONVERSIONS Dental, Provider, DDS Social History Tobacco Use Types Packs/Day Years Used Date Smoking Tobacco: Never Assessed Comments Unknown Sex and Gender Information Value Date Recorded Sex Assigned at Female 02/13/2022 10:27 AM EDT Legal Sex Female 10:27 AM EDT Gender Identity Female 02/13/2022 10:27 AM EDT Sexual Orientation Straight 02/13/2022 10 :27 AM EDT documented as of this encounter Plan of Treatment Upcoming Encounters Date Type Department Care Team (Late st Contact Info) Description 03/02/2025 1:30 PM EST Office Visit [facility] ADULT DENTAL [address] [place] [address] Mayte Guillen, DDS [address] [place] [address] documented as of this encounter Visit Diagnoses Not on filedocumented in this encounter
--- OUTSIDE RECORDS SUMMARY | 2025-02-24 13:30 | XMS_ITS | Clinical Summary ---
Author Organization [facility] ity Address [address] [place] [address] Care Team Providers Care Network Operations Center Technician Name Role Phone Unavailable Primary Care Provider [...] 2) 11/14/2013 Depression Screening 04/16/2024 COVID-19 Vaccine (1 - 2024-2 6 season) 2024 Influenza Vaccine (#1) 2024 RSV [...]
== END 2025-02-24 11:48 | disposition home or self-care (01) ==
LOC: HO.HVS 11:16
PROVIDERS: PCP Internal Medicine; Visit Provider Surgery Vascular Surgery
DX: I83.11 Varicose veins of right lower extremity with inflammation (principal)
CPT/HCPCS: 99204

== ENCOUNTER → 2025-02-24 11:16 | Outpatient (BNVA) | payer MEDICARE, MEDICAID, SELFPAY | PROVIDERS: PCP Internal Medicine; Visit Provider Surgery Vascular Surgery | DX: I83.11 Varicose veins of right lower extremity with inflammation (principal) | CPT/HCPCS: 99202 ==

== ENCOUNTER 2025-03-09 07:31 | Outpatient (REF) | payer MEDICARE, MEDICAID, SELFPAY ==
--- NOTE | ~2025-03-09 | XR_ITS ---
EXAMINATION: X-ray bilateral shoulders CLINICAL INFORMATION: Pain COMPARISON: X-ray 03/10/2020 TECHNIQUE: Right shoulder 3 views. Left shoulder 3 views. FINDINGS: Right shoulder: Bone mineralization appears decreased. No fracture. Glenohumeral and acromioclavicular alignment is anatomic with normal joint space. No abnormal soft tissue calcification. Visualized lung is clear. Left shoulder: Bone mineralization appears decreased. No acute fracture. The glenohumeral joint space is maintained. Widening of the acromioclavicular distance, was better appreciated on the prior x-ray scapular view. No abnormal soft tissue calcification. XR/XR shoulder LT min 2V IMPRESSION: Right shoulder: No acute findings Left shoulder: No acute findings. Widening of the acromioclavicular joint, better appreciated on the prior x-ray scapular Y view. No significant interval change in the provided images.. Electronically signed by: Vic Mcginnis MD 03/09/2025 03:32 PM FUAD
--- NOTE | ~2025-03-09 | XR_ITS ---
EXAMINATION: X-ray bilateral shoulders CLINICAL INFORMATION: Pain COMPARISON: X-ray 03/10/2020 TECHNIQUE: Right shoulder 3 views. Left shoulder 3 views. FINDINGS: Right shoulder: Bone mineralization appears decreased. No fracture. Glenohumeral and acromioclavicular alignment is anatomic with normal joint space. No abnormal soft tissue calcification. Visualized lung is clear. Left shoulder: Bone mineralization appears decreased. No acute fracture. The glenohumeral joint space is maintained. Widening of the acromioclavicular distance, was better appreciated on the prior x-ray scapular view. No abnormal soft tissue calcification. XR/XR shoulder RT min 2V IMPRESSION: Right shoulder: No acute findings Left shoulder: No acute findings. Widening of the acromioclavicular joint, better appreciated on the prior x-ray scapular Y view. No significant interval change in the provided images.. Electronically signed by: Vic Mcginnis MD 03/09/2025 03:32 PM FUAD
--- OUTSIDE RECORDS SUMMARY | 2025-03-09 14:57 | XMS_ITS | Clinical Summary ---
Author Organization [employer] Address [address] [place] [address] [address] [place] [address] Care Team Providers Care Vp Of Digital Marketing Name Role Phone Unavailable Primary Care Provider Unavailabl e Allergies Active Allergy Reactions Criticality Noted Date Comments Aspirin 10/04/2018 Oxycodone-Acetaminophen 11/24/2022 nausea Medications albuterol (ProAir HFA) 108 (90 Base) MCG/ACT inhaler 2 puffs as needed Active atorvastatin (Lipitor) 40 MG tablet 3 Active buPROPion (Wellbutrin) 100 MG tablet 3 times a day. A ctive clonazePAM (KlonoPIN) 0.5 MG tablet Take 0.5 mg by mouth if needed each day. 3 Active cyclobenzaprine (Flexeril) 5 MG tablet 3 times a day. Activ e hydrOXYzine HCl (Atarax) 50 MG tablet Take 50 mg by mouth 3 times daily. 3 Active omeprazole (PriLOSEC) [address] capsule daily. Active potassium chloride CR (Klor-Con) 10 MEQ ER tablet 4 times a day. A ctive topiramate (Topamax) 200 MG tablet daily. Active Xarelto 15 MG tablet Take 15 mg by mouth in the morning. 3 Active warfarin (Coumadin) 5 MG tablet 1 tablet Active traZODone (Desyrel) 300 MG tablet 3 times a day. Activ e propranolol (Inderal) 60 MG tablet 2 times daily. Activ e sertraline (Zoloft) 50 MG tablet 5 Active Lifitegrast (Xiidra) 5 % solution Administer 1 drop into affected eye(s) every 12 (twelve) hours. Active cholecalciferol (Vitamin D-3) 25 MCG (1000 UT) tablet Active polyethylene glycol, PEG, 3350 (Glycolax) 17 GM/SCOOP powder Take 170 g by mouth. Active sertraline (Zoloft) 100 MG tablet 50 mg. Active Active Problems No known active problems Encounters Date Type Department Care Team Description 03/02/2025 1:30 PM EST Office Visit [facility] ADULT DENTAL [address] [place] [address] Mayte Guillen DDS 01/20/2025 12:45 PM EDT Office Visit [facility] ADULT DENTAL [address] [place] [address] Jb Vital Dental calculus (Primary Dx) from [...] Sign Reading Time Taken Comments Blood Pressure 140/80 03/02/2025 1:39 PM EST Pulse 68 03/02/2025 1:39 PM EST Temperature - - Respiratory Rate - - Oxygen Saturation - - Inhaled Oxygen Concentration - - Weight - - Height - - Body Mass Index - - Plan of Treatment Upcoming Encounters Date Type Department Care Team (Late st Contact Info) Description 03/31/2025 11:00 AM EST Office Visit [facility] ADULT DENTAL [address] [place] [address] Mayte Guillen DDS [address] [place], [place] [id number] Health Maintenance Due Date Last Done Comments [...] Vaccines (1 of 2) 11/14/2013 COVID-19 Vaccine (4 - season) 2024 04/12/2021, 09/01/2020, 08/10/2020 Influenza Vaccine (#1) 2024 Dental Oral Exam 07/22/2025 01/20/2025, , 05/28/2018, Additional history exists Dental Prophylaxis 07/22/2025 01/20/2025, 0 12/13/2023, 11/24/2022, Additional history exists Dental X-Ray: Bitewings 01/21/2026 01/21/20 25, 12/13/2023, 04/10/2023, Additional history exists Tobacco Screening 03/02/2026 03/02/2025 Dental X-Ray: Full Mouth 12/13/2026 024, 05/28/2018, [...] Procedure Name Priority Date/Time Associated Diagnosis Comments CASE PRESENTATION, DETAILED AND EXTENSIVE TREATMENT PLANNING Routine 03/02/2025 1:30 PM EST 28 B RESIN-BASED COMPOSITE - 1 SURF, POSTERIOR Routine 03/02/2025 1:30 PM EST 31 B RESIN-BASED COMPOSITE - 1 SURF, POSTERIOR Routine 03/02/2025 1:30 PM EST 30 B RESIN-BASED COMPOSITE - 1 SURF, POSTERIOR Routine 03/02/2025 1:30 PM EST 29 B RESIN-BASED COMPOSITE - 1 SURF, POSTERIOR Routine 03/02/2025 1:30 PM EST COMPREHENSIVE PERIODONTAL EVALUATION - NEW OR ESTABLISHED [...] Most Recently Relevant to Health Maintenance Insurance [facility] MEDICAID STAND ADULT
--- OUTSIDE RECORDS SUMMARY | 2025-03-09 14:57 | XMS_ITS | Encounter Summary ---
Author Organization [employer] Address [address] [place] [address] [address] [place] [address] Care Team Providers Care Dish Room Worker Name Role Phone Unavailable Primary Care Provider Unavailabl e Encounter Details Date Type Department Care Team (Latest Contact Info) Description 05/28/2018 Abstract [facility] CONVERSIONS Dental, Provider, DDS Social [...] Description 03/31/2025 11:00 AM EST Office Visit [facility] ADULT DENTAL [address] [place] [address] Mayte Guillen, NELDAS [address] [place] [address] documented as of this encounter Visit Diagnoses Not on filedocumented in this encounter
--- OUTSIDE RECORDS SUMMARY | 2025-03-09 14:57 | XMS_ITS | Clinical Summary ---
Author Organization [facility] ity Address [address] [place] [address] Care Team Providers Care Aircraft Engine Mechanic Name Role Phone Unavailable Primary Care Provider [...]
== END 2025-03-09 07:32 | disposition home or self-care (01) ==
LOC: HO.HOSX 07:31
PROVIDERS: Visit Provider Physician Assistant
DX: M75.102 Unspecified rotator cuff tear or rupture of left shoulder, not specified as traumatic (principal); M75.101 Unspecified rotator cuff tear or rupture of right shoulder, not specified as traumatic; E11.9 Type 2 diabetes mellitus without complications
CPT/HCPCS: 20610; 73030; 99202; J0665; J1100; J2003

== ENCOUNTER 2025-03-09 13:24 | Outpatient (AMB) | payer MEDICARE, MEDICAID, SELFPAY ==
--- NOTE | 2025-03-09 13:48 | A.OFFVIS_ITS ---
Vital Signs 03/09/25 13:54 Height 5 ft 2 in Weight 117 lb BMI 21.4 Intake Visit Reasons: OV- Bilateral shoulder pain Intake Note: Analia is a 59 year old female right hand dominant who presents today as a new patient for her bilateral shoulder pain. Patient was referred by [facility] [place]. At today's visit she states that for the past 10 years she has had bilateral shoulder pain. She noted that she had Left shoulder surgery in office back in 2018. She noted that she had x ray's of the right shoulder back in 2018. Patient noted that she has tried physical therapy and at home exercises to help relieve the pain, and would rather do at home exercises. Patient reports that she had injections in the past for her shoulder pain, they were given in office back in 2018. She added that when she has to lift something is when she feels a discomfort in her shoulders. She added that she has to hold her arm up with her other arm to help with weight bearing. Allergies aspirin (ASPIRIN) Adverse Reaction (Intermediate, Verified 02/24/25 11:27) STOMACH ISSUES oxycodone (Percocet) Adverse Reaction (Unknown, Verified 02/24/25 11:27) Dizziness HPI HPI OV- Bilateral shoulder pain: Details: Ms. Whitley this is a 59-year-old right-hand dominant female who presents to the office today for bilateral shoulder pain. She also endorses numbness and tingling in bilateral upper extremities. She denies any neck pain. She reports that in 2019 she received a cortisone injection in her left shoulder which gave her only a few days of relief. She reports that she has done physical therapy and continues to perform a home exercise program. She is unable to take NSAIDs due to long-term Xarelto use. [facility] Medical History DVT, bilateral lower limbs MDD (major depressive disorder) Migraine headache Hyperlipidemia Anxiety Adhesive capsulitis of left shoulder Rotator cuff impingement syndrome of left shoulder Surgical History History of arthroscopy of left shoulder H/O section Family History Mother No problems noted. Father No problems noted. Social History (Updated 02/24/25 @ 11:30 by KARL Edmondson) Housing: Apartment Patient Tobacco Use Status: Current everyday Tobacco user Cigarettes Per Day: 10 e-Cigarette/Vaping Use: Former Use service: No Current occupational status: disabled Current occupation: Right Handed Cognitive needs: No Hearing needs: No Vision needs: Yes (rx glasses) Review of Systems Const All systems reviewed & are unremarkable except as noted in HPI and below Physical Exam Vital Signs: BMI result Body Mass Index 21.4 Const General: cooperative, healthy appearing and no acute distress Resp Effort & Inspection: normal respiratory effort and able to speak in complete sentences Extrem Other: Right/Left shoulder: Normal to inspection. No ecchymosis, erythema, or edema. Lacking roughly 20 degrees of forward flexion and abduction. Able to reach back pocket. Full external rotation. Positive cross-body reach. 4/5 empty can. Negative drop arm. NVI. Psych Appearance: grossly normal Mental Status: mental status grossly normal Attitude: cooperative Office Procedures AMB Joint Injection/Aspiration Joint Injection/Aspiration Primary Site: Right Shoulder Secondary Site: Left Shoulder Prep: site was prepped using aseptic technique, ethochloride spray was applied and injection warnings given Injected: 40 mg of, Decadron, with 3 mL of, 1% plain Lidocaine, 0.25% Bupivacaine and in the subcromial space Approach Used: posterolateral Procedure: The patient tolerated the procedure well, but had some pain with the injection and there was some relief with the local anesthesia Coding 37497 - Bilateral Large Joint Procedure code (CPT) selection complete Assessment & Plan Assessment & Plan (1) Painful arc syndrome of left shoulder: Code(s): M75.102 - Unspecified rotator cuff tear or rupture of left shoulder, not specified as traumatic Category: Medical (2) Painful arc syndrome of right shoulder: Code(s): M75.101 - Unspecified rotator cuff tear or rupture of right shoulder, not specified as traumatic Category: Medical Plan The patient was offered a cortisone injection in bilateral shoulders. The patient was explained the risks, benefits, and alternatives to receiving this injection. After receiving consent for the injection, the patient had the procedure done while in the office today. The patient tolerated the procedure well with no complications. The risks, benefits, and alternatives to a corticosteroid injection were discussed with the patient, including the potential benefits of decreased inflammation and pain, improved function, and diagnostic value. Risks were reviewed, including post-injection flare, skin or fat atrophy, transient facial flushing, temporary elevation in blood glucose, bruising, and rare but serious complications such as infection, tendon weakening or rupture, and cartilage damage with repeated injections. Procedure-related discomfort and possible vasovagal symptoms were also explained. Alternatives were reviewed, including NSAIDs, physical therapy, activity modification, bracing, ice/heat, weight management, hyaluronic acid injections when appropriate, PRP or other orthobiologics, oral steroids, surgery depending on pathology, and observation. The patient verbalized understanding and elected to proceed. After receiving consent for the injection, the patient had the procedure done while in the office today. The patient tolerated the procedure well with no complications. Due to the patient?s history of diabetes, they were instructed to monitor their blood glucose level. The patient was informed that they could see a rise in their numbers and if the numbers became too high, they were instructed to call their PCP. Follow-up will be PRN, or sooner if needed X-rays of bilateral shoulders which were obtained while in the office today and were reviewed by me, Aurelia Bonilla PA-C, revealed no acute fracture or dislocation. Orders: Orders XR shoulder LT min 2V Today M25.519 - Pain in unspecified shoulder XR shoulder RT min 2V Today M25.519 - Pain in unspecified shoulder Coding Level of Care Code Est Pt Level 3 (71462) Diagnoses Painful arc syndrome of left shoulder M75.102 Painful arc syndrome of right shoulder M75.101 CPT Codes Coding - 87017 - Bilateral Large Joint: 01159 - Bilateral Large Joint ([id number])
[2025-03-09 13:54] VITALS: BMI 21.4
== END 2025-03-09 15:17 | disposition home or self-care (01) ==
LOC: HO.HOS 13:24
PROVIDERS: PCP Internal Medicine; Visit Provider Physician Assistant
DX: M75.42 Impingement syndrome of left shoulder (principal); M75.41 Impingement syndrome of right shoulder; M25.511 Pain in right shoulder; M25.512 Pain in left shoulder
CPT/HCPCS: 20610; 99203

== ENCOUNTER → 2025-03-09 13:30 | Outpatient (BNV) | payer MEDICARE, MEDICAID, SELFPAY | PROVIDERS: Visit Provider Radiology Diagnostic Ultrasound | DX: M25.512 Pain in left shoulder (principal); M25.511 Pain in right shoulder | CPT/HCPCS: 73030 ==